=== PATIENT | male | born 1955 | race Asian ===

== ENCOUNTER 2018-11-01 15:38 | Inpatient (IN) | payer BC, OTHER ==
[~2018-11-01] VITALS: Ht 157.5 cm; Wt 61.0 kg
[2018-11-01] MEDS ORDERED: ONDANSETRON 4 MG INJ IV STA (17:10)
[2018-11-01] MEDS ORDERED: SOD CHLORIDE 0.9% 1,000 ML IV STA (17:10)
[2018-11-01] MEDS ORDERED: morphine 4 MG/ML VIAL IV STA (17:10)
--- NOTE | 2018-11-01 17:57 | ERD ---
ER Documentation Chief Complaint Chief Complaint ABD PAIN X 1 WEEK WITH DARK STOOL HPI This is a 63-year-old gentleman who presents to the emergency room complaining of abdominal pain. The patient has had approximately 5 days of abdominal pain that is generalized diffuse and 8 out of 10. No associated nausea vomiting diarrhea or constipation. There has been reported some possible bloody stools. The patient was in [place] and in the hospital for 3 days being treated for this pain and was told "your colon is twisted". No prior history of abdominal surgery. Patient arrived back to the [place] yesterday. ROS All systems reviewed and are negative except as per history of present illness. Medications Home Meds No Active Prescriptions or Reported Meds Allergies Allergies: Coded Allergies: No Known Drug Allergy (Verified Allergy, Unknown, 11/01/18) FmHx Family History: No diabetes Physical Exam Vitals Vital Signs Date Temp Pulse Resp B/P (MAP) Pulse Ox O2 O2 Flow FiO2 Time Delivery Rate 11/01/18 57 17 148/82 97 Room Air 19:30 (104) 11/01/18 98.4 78 16 158/87 98 Room Air 17:10 (110) 11/01/18 98.1 75 18 206/95 99 15:39 (132) Physical Exam General: Well developed, well nourished, no acute distress Head: Normocephalic, atraumatic. Eyes: Pupils equally reactive, EOM intact ENT: Moist mucous membranes Neck: Supple, no lymphadenopathy Respiratory: Lungs clear bilaterally, no distress Cardiovascular: RRR, no murmurs, rubs, or gallops Abdominal: Soft, mild generalized abdominal tenderness without rebound but voluntary guarding is noted, no localization : Deferred MSK: No edema, no unilateral swelling, 5/5 strength Neurologic: Alert and oriented, moving all extremities, normal speech, no focal weakness, no cerebellar signs Skin: No rash Psych: Normal mood Result Diagram: 11/01/18 1734 11/01/18 1734 Results 24 hrs Laboratory Tests Test 11/01/18 17:34 11/01/18 18:09 White Blood Count 7.1 10^3/ul Red Blood Count 4.02 10^6/ul Hemoglobin 13.3 g/dl Hematocrit 39.1 % Mean Corpuscular Volume 97.3 fl Mean Corpuscular Hemoglobin 33.1 pg Mean Corpuscular Hemoglobin Concent 34.0 g/dl Red Cell Distribution Width 12.1 % Platelet Count 284 10^3/UL Mean Platelet Volume 9.4 fl Immature Granulocytes % 0.700 % Neutrophils % 57.7 % Lymphocytes % 28.8 % Monocytes % 10.5 % Eosinophils % 1.6 % Basophils % 0.7 % Nucleated Red Blood Cells % 0.0 /100WBC Immature Granulocytes # 0.050 10^3/ul Neutrophils # 4.1 10^3/ul Lymphocytes # 2.0 10^3/ul Monocytes # 0.7 10^3/ul Eosinophils # 0.1 10^3/ul Basophils # 0.1 10^3/ul Nucleated Red Blood Cells # 0.0 10^3/ul Prothrombin Time 13.0 Sec Prothrombin Time Ratio 1.0 INR International Normalized Ratio 0.97 Activated Partial Thromboplast Time 33.2 Sec Sodium Level 141 mmol/L Potassium Level 3.8 mmol/L Chloride Level 107 mmol/L Carbon Dioxide Level 28 mmol/L Anion Gap 6 Blood Urea Nitrogen 13 mg/dl Creatinine 0.66 mg/dl Est Glomerular Filtrat Rate mL/min > 60 mL/min Glucose Level 93 mg/dl Calcium Level 8.6 mg/dl Total Bilirubin 0.0 mg/dl Direct Bilirubin 0.00 mg/dl Indirect Bilirubin 0.0 mg/dl Aspartate Amino Transf (AST/SGOT) 26 IU/L Alanine Aminotransferase (ALT/SGPT) 52 IU/L Alkaline Phosphatase 69 IU/L Total Protein 6.1 g/dl Albumin 3.2 g/dl Globulin 2.90 g/dl Albumin/Globulin Ratio 1.10 Lipase 228 U/L POC Venous Lactate 1.0 mmol/L Current Medications Medications Dose Sig/Maddy Start Time Status Last (Trade) Ordered Route PRN Stop Time Admin Dose Reason Admin Sodium 1,000 ml @ Q1H STAT 11/01/18 DC 11/01/18 Chloride 1,000 mls/hr IV 17:10 18:16 11/01/18 18:09 Morphine 4 mg ONCE STAT 11/01/18 DC 11/01/18 Sulfate IV 17:10 18:16 (morphine) 11/01/18 17:12 Ondansetron 4 mg ONCE STAT 11/01/18 DC 11/01/18 HCl (Zofran IV 17:10 18:16 Inj) 11/01/18 17:12 IV Flush 10 ml STK-MED 11/01/18 DC (NS 10 ml) ONCE .ROUTE 20:07 11/01/18 20:08 Sodium 100 ml @ ud STK-MED 11/01/18 DC Chloride ONCE .ROUTE 20:07 11/01/18 20:08 Iohexol 100 ml @ ud STK-MED 11/01/18 DC ONCE .ROUTE 20:07 11/01/18 20:08 Iohexol 50 ml STK-MED 11/01/18 DC (Omnipaque ONCE .ROUTE 20:07 350mg/ ml) 11/01/18 20:08 Procedures/MDM EKG, MONITORS, & DIAGNOSTIC IMAGING: CT abdomen and pelvis: IMPRESSION: 1. Multiple mildly dilated loops of small bowel with air-fluid levels and the small bowel feces sign without a transition point are nonspecific. The appearance may be due to malabsorption, dysmotility and/or mesenteric ischemia. Negative for pneumatosis. Recommend correlation with serum lactate and further evaluation with contrast enhanced CT preferably with arterial and venous phase imaging. 2. 2.1 cm liver lesion with coarse calcifications is unchanged from prior CT performed October 20, 2008 and likely benign. 3. Please note that in the absence of intravenous contrast the study does not evaluate the patency of the vasculature. RPTAT: HCTS CXR IMPRESSION: No evidence for acute cardiopulmonary disease. 7 mm ossific density versus sclerotic focus within the right humeral neck which is indeterminate. Aortic calcifications. Further findings as detailed above. RPTAT: HVF LAB INTERPRETATION: I reviewed the laboratory testing and it shows no evidence of acute process MEDICAL DECISION MAKING: The patient is 5 days of abdominal pain. He was traveling in [place] but this does not appear to be a foodborne or travel related illness. The patient describes similar symptoms approximately 10 years ago. The patient warrants laboratory testing and diagnostic imaging including CT of the abdomen and pelvis. Lower concern for mesenteric ischemia though [id number] lactate would be reasonable. Differential includes bowel obstruction, appendicitis, among others. ER COURSE: * The patient continues to have some discomfort. CT of the abdomen and pelvis shows nonspecific dilated bowel loops, consider ileus versus early bowel obstruction. Nonspecific. Lactic acid reassuring. CT of the abdomen and pelvis has been ordered. Given persistence of pain inpatient hospitalization for further workup would be appropriate. CONSULTATION: None DISPOSITION PLAN: Accepting care team and consultations: I discussed the current laboratory data, diagnostic imaging and emergency care provided. Admitting team: Dr. Aragon Admitting team indication: Insurance directed Departure Diagnosis: Primary Impression: Abdominal pain Abdominal location: generalized Qualified Codes: R10.84 - Generalized abdominal pain Condition: Stable ANGELO CRUZ MD Nov 01, 2018 17:57
[2018-11-01] MEDS ORDERED: IOHEXOL 350MG/ML 50 ML BTL ONE (20:07)
[2018-11-01] MEDS ORDERED: IOHEXOL 100 ML ONE (20:07)
[2018-11-01] MEDS ORDERED: SOD CHLORIDE 0.9% 100 ML ONE (20:07)
[2018-11-01] MEDS ORDERED: ONDANSETRON 4 MG INJ IV PRN (20:30)
[2018-11-01] MEDS ORDERED: ACETAMINOPHEN 325 MG TAB PO PRN (20:30)
[2018-11-01] MEDS ORDERED: DEXTROSE 5%-0.45% NACL 1,000 ML IV SCH (22:12)
[2018-11-01 22:24] VITALS: Ht 157.5 cm; Wt 61.0 kg
[2018-11-01 22:29] VITALS: BP 164/82; PULSE 53; RESP 16
[2018-11-01] MEDS ORDERED: morphine 2 MG INJ IV PRN (22:30)
[2018-11-01] MEDS ORDERED: NACL 0.9% 3 ML SYG IV SCH (22:30)
[2018-11-01] MEDS ORDERED: SOD CHLORIDE 0.9% 1,000 ML IV SCH (22:30)
[2018-11-01] MEDS: DEXTROSE 5%-0.45% NACL 1,000 ML IV SCH (23:30)
[2018-11-01] MEDS ORDERED: PANTOPRAZOLE IV 80 MG in SOD CHLORIDE 0.9% 100 ML IVPB ONE (23:30)
[2018-11-01] MEDS ORDERED: PANTOPRAZOLE IV 80 MG in SOD CHLORIDE 0.9% 100 ML IV SCH (23:30)
--- NOTE | 2018-11-01 23:34 | HP ---
Date/Time of Note Date/Time of Note DATE: 11/01/18 TIME: 23:34 Assessment/Plan VTE Prophylaxis Pharmacological prophylaxis: other Lines/Catheters IV [facility]from [facility] Saline Lock Assessment/Plan Hospital Course Objective Physical exam General: Patient is laying in bed and answers questions appropriately Mentation: Patient is alert and oriented 4, Head: Normocephalic atraumatic Eyes: EOMI, pupils reactive to light Neck: Supple, nontender, midline Respiratory: Clear to auscultation bilaterally Cardiovascular: regular rate, no obvious murmurs Gastrointestinal: Minimally tender to palpation, bowel sounds heard. Neurological: Moves all extremities spontaneously Skin: No new skin lesions Assessment and plan Small bowel obstruction -Diagnosed on CT angiogram -Dr. Buenrostro, general surgeon consulted, recommended small bowel follow-through in the morning -Appears that distention and pain has been resolving Urinary retention -Patient had large amount of urine retained, was not able to pee, Navarrete catheter inserted -Day team to reassess and possibly trial of removal Questionable bloody stool in [facility] -No bloody stool at the moment, there was some talk of possible colon cancer in [place], however are CTs do not show any particular mass, however that day team primary doctor will need to talk to the on-site radiologist to reevaluate imaging to see if there is a possibility of mass or if further imaging is needed before patient can follow-up in the outpatient setting with GI. Disposition -N.p.o., IV fluid, follow-up with general surgery recommendations, small bowel follow-through pending for the morning Result Diagram: 11/01/18 1734 11/01/18 1734 Results 24hrs Laboratory Tests Test 11/01/18 17:34 11/01/18 18:09 White Blood Count 7.1 Red Blood Count 4.02 L Hemoglobin 13.3 L Hematocrit 39.1 L Mean Corpuscular Volume 97.3 Mean Corpuscular Hemoglobin 33.1 H Mean Corpuscular Hemoglobin Concent 34.0 Red Cell Distribution Width 12.1 Platelet Count 284 Mean Platelet Volume 9.4 Immature Granulocytes % 0.700 H Neutrophils % 57.7 Lymphocytes % 28.8 Monocytes % 10.5 Eosinophils % 1.6 Basophils % 0.7 Nucleated Red Blood Cells % 0.0 Immature Granulocytes # 0.050 H Neutrophils # 4.1 Lymphocytes # 2.0 Monocytes # 0.7 Eosinophils # 0.1 Basophils # 0.1 Nucleated Red Blood Cells # 0.0 Prothrombin Time 13.0 Prothrombin Time Ratio 1.0 INR International Normalized Ratio 0.97 Activated Partial Thromboplast Time 33.2 Sodium Level 141 Potassium Level 3.8 Chloride Level 107 Carbon Dioxide Level 28 Anion Gap 6 Blood Urea Nitrogen 13 Creatinine 0.66 Est Glomerular Filtrat Rate mL/min > 60 Glucose Level 93 Calcium Level 8.6 Total Bilirubin 0.0 L Direct Bilirubin 0.00 Indirect Bilirubin 0.0 Aspartate Amino Transf (AST/SGOT) 26 Alanine Aminotransferase (ALT/SGPT) 52 Alkaline Phosphatase 69 Total Protein 6.1 Albumin 3.2 L Globulin 2.90 Albumin/Globulin Ratio 1.10 Lipase 228 POC Venous Lactate 1.0 HPI/ROS Admit Date/Time Admit Date/Time Nov 01, 2018 at 20:23 Hx of Present Illness Patient is a Armenian male with no significant past medical history who presents to [facility] for abdominal pain. Patient states that the pain is been going on for about a week and it eventually became so bad he decided to come to the ED. Patient states that the pain was generally diffuse but has not had any nausea, vomiting, diarrhea. Patient currently mikhail ears much more comfortable, however may be due to pain medication. Of note patient stated that he was recently in [place] and it appears that he was being treated for a small bowel obstruction as well, they treated conservatively and did not perform surgery. Also of note patient had dark stool while in [place], the surgeons over there mention something regarding possible colon cancer however patient decided [facility] to get further workup. Currently patient is doing well with minimal abdominal pain. Patient denies nausea, vomiting, chest pain, shortness of breath, headache, leg pain PMH/Family/Social Past Medical History Medications Current Medications Ondansetron HCl (Zofran Inj) 4 mg BRIDGE ORDER PRN IV NAUSEA/VOMITING; Start 11/01/18 at 20:30; Stop 11/02/18 at 20:29 Acetaminophen (Tylenol Tab) 650 mg ER BRIDGE PRN PO .MILD PAIN 1-3 OR TEMP; Start 11/01/18 at 20:30; Stop 11/02/18 at 20:29 IV Flush (NS 3 ml) 3 ml PER PROTOCOL IV ; Start 11/01/18 at 22:30 Morphine Sulfate (morphine) 2 mg Q4H PRN IV .PAIN 7-10; Start 11/01/18 at 22:30 Pantoprazole (Protonix Iv) 40 mg DAILY@06 IV ; Start 11/02/18 at 06:00 Sodium Chloride 1,000 ml @ 100 mls/hr Q10H IV Last administered on 11/01/18at 22:57; Admin Dose 100 MLS/HR; Start 11/01/18 at 22:30 Coded Allergies: No Known Drug Allergy (Verified Allergy, Unknown, 11/01/18) Social History Smoking Status: Current every day smoker Exam/Review of Systems Vital Signs Vitals Vital Signs Date Temp Pulse Resp B/P (MAP) Pulse Ox O2 O2 Flow FiO2 Time Delivery Rate 11/01/18 98.1 53 16 164/82 96 22:29 (109) 11/01/18 Room Air 21:40 BERNY BUSTILLOS Nov 01, 2018 23:34
[2018-11-02 02:20] VITALS: BP 153/76; PULSE 46; RESP 15
[2018-11-02] MEDS: PANTOPRAZOLE 40 MG INJ IV SCH (05:25)
[2018-11-02] MEDS ORDERED: PANTOPRAZOLE 40 MG INJ IV SCH (06:00)
[2018-11-02] MEDS: DEXTROSE 5%-0.45% NACL 1,000 ML IV SCH (06:11)
[2018-11-02 07:33] VITALS: BP 149/79; PULSE 51; RESP 14
--- NOTE | 2018-11-02 10:36 | CONS ---
Assessment/Plan Assessment/Plan Assessment/Plan (Daily) At the CT yesterday suggested small bowel obstruction. A small bowel follow- through has been ordered. Further recommendations will be forthcoming based on the patient's further workup and clinical course. I will follow with you. Consultation Date/Type/Reason Admit Date/Time Nov 01, 2018 at 20:23 Date of Consultation: Nov 02, 2018 Type of Consult General surgery Reason for Consultation Possible small bowel obstruction Date/Time of Note DATE: 11/02/18 TIME: 10:32 Hx of Present Illness The patient is a 63-year-old Irish gentleman who has had no previous abdominal surgery. Several weeks ago he was in [place] where he was being worked up for abdominal pain. It is entirely unclear the what the results of this workup were or what the recommendations were. He presented to the emergency room yesterday with mid abdominal pain. Imaging in the emergency room suggested small bowel obstruction. The patient was admitted, surgical consultation was requested, and small bowel follow-through has been ordered. His last bowel movement was yesterday. The patient states that since admission he is symptomatically improved. He has had no fevers, chills or systemic symptoms. Constitutional: no complaints Eyes: no complaints ENT: no complaints Respiratory: no complaints Cardiovascular: no complaints Gastrointestinal: pain (As in the HPI) Genitourinary: no complaints Musculoskeletal: no complaints Skin: no complaints Neurologic: no complaints Endocrine: no complaints Lymphatic: no complaints Past Medical History Medical History: hypertension Home Meds No Active Prescriptions or Reported Meds Medications Current Medications IV Flush (NS 3 ml) 3 ml PER PROTOCOL IV ; Start 11/01/18 at 22:30 Morphine Sulfate (morphine) 2 mg Q4H PRN IV .PAIN 7-10; Start 11/01/18 at 22:30 Pantoprazole (Protonix Iv) 40 mg DAILY@06 IV Last administered on 11/02/18at 05:25; Admin Dose 40 MG; Start 11/02/18 at 06:00 Potassium Chloride/Dextrose/ Sod Cl 1,000 ml @ 100 mls/hr Q10H IV ; Start 11/02/18 at 09:30 Allergies: Coded Allergies: No Known Drug Allergy (Verified Allergy, Unknown, 11/01/18) Past Surgical History Past Surgical Hx: no surgical history Family History Significant Family History: no pertinent family hx Social History Smoking Status: Current every day smoker Exam/Review of Systems Exam Vitals Vital Signs Date Temp Pulse Resp B/P (MAP) Pulse Ox O2 O2 Flow FiO2 Time Delivery Rate 11/02/18 98.6 51 14 149/79 100 Room Air 07:33 (102) Intake and Output 11/01/18 11/01/18 11/02/18 1515:00 23:00 07:00 IntakeIntake Total 1000 ml OutputOutput Total 1300 ml BalanceBalance -300 ml Constitutional: alert, oriented Psych: no complaints Head: normocephalic Eyes: nl conjunctiva ENMT: nl external ears & nose Neck: supple Respiratory: clear to auscultation Cardiovascular: regular rate and rhythm Gastrointestinal: soft, non-tender Musculoskeletal: nl extremities to inspection Extremities: normal pulses Neurological: other (Speaks only Irish) Skin: nl turgor Results Result Diagram: 11/02/18 0436 11/02/18 0436 Results 24hrs Laboratory Tests Test 11/01/18 17:34 11/01/18 18:09 11/01/18 22:36 11/02/18 04:36 White Blood Count 7.1 7.3 Red Blood Count 4.02 L 4.13 L Hemoglobin 13.3 L 13.7 L Hematocrit 39.1 L 40.3 L Mean Corpuscular 97.3 97.6 Volume Mean Corpuscular 33.1 H 33.2 H Hemoglobin Mean Corpuscular 34.0 34.0 Hemoglobin Concent Red Cell 12.1 12.2 Distribution Width Platelet Count 284 284 Mean Platelet Volume 9.4 9.8 Immature 0.700 H 0.400 Granulocytes % Neutrophils % 57.7 50.2 Lymphocytes % 28.8 36.6 Monocytes % 10.5 9.7 Eosinophils % 1.6 2.3 Basophils % 0.7 0.8 Nucleated Red Blood 0.0 0.0 Cells % Immature 0.050 H 0.030 Granulocytes # Neutrophils # 4.1 3.7 Lymphocytes # 2.0 2.7 Monocytes # 0.7 0.7 Eosinophils # 0.1 0.2 Basophils # 0.1 0.1 Nucleated Red Blood 0.0 0.0 Cells # Prothrombin Time 13.0 Prothrombin Time 1.0 Ratio INR International 0.97 Normalized Ratio Activated 33.2 Partial Thromboplast Time Sodium Level 141 142 Potassium Level 3.8 3.3 L Chloride Level 107 110 Carbon Dioxide Level 28 28 Anion Gap 6 4 L Blood Urea Nitrogen 13 8 Creatinine 0.66 0.58 L Est Glomerular > 60 > 60 Filtrat Rate mL/min Glucose Level 93 81 Calcium Level 8.6 8.3 L Total Bilirubin 0.0 L 0.0 L Direct Bilirubin 0.00 0.00 Indirect Bilirubin 0.0 0.0 Aspartate Amino 26 33 Transf (AST/SGOT) Alanine 52 55 Aminotransferase (AL T/SGPT) Alkaline Phosphatase 69 52 Total Protein 6.1 5.3 L Albumin 3.2 L 2.7 L Globulin 2.90 2.60 Albumin/Globulin 1.10 1.03 Ratio Lipase 228 POC Venous Lactate 1.0 Lactic Acid Level 1.1 Hemoglobin A1c 5.2 Magnesium Level 1.7 Medications Medication Current Medications IV Flush (NS 3 ml) 3 ml PER PROTOCOL IV ; Start 11/01/18 at 22:30 Morphine Sulfate (morphine) 2 mg Q4H PRN IV .PAIN 7-10; Start 11/01/18 at 22:30 Pantoprazole (Protonix Iv) 40 mg DAILY@06 IV Last administered on 11/02/18at 05:25; Admin Dose 40 MG; Start 11/02/18 at 06:00 Potassium Chloride/Dextrose/ Sod Cl 1,000 ml @ 100 mls/hr Q10H IV ; Start 11/02/18 at 09:30 ELZBIETA RHODES MD Nov 02, 2018 10:36
[2018-11-02] MEDS ORDERED: DIATR MEGLU/DIATRIZOATE SODIUM 120 ML BTL ONE (10:43)
--- NOTE | 2018-11-02 10:43 | PN ---
Date/Time of Note Date/Time of Note DATE: 11/02/18 TIME: 10:41 Assessment/Plan VTE Prophylaxis Risk score (from Ns)>0 risk: 0 [place] [facility] [place] Pharmacological prophylaxis: NA/contraindicated Pharm contraindication: surgical contra Lines/Catheters IV [facility] Peripheral IV Assessment/Plan Hospital Course Small bowel obstruction -Diagnosed on CT angiogram -Dr. Beunrostro, general surgeon consulted, recommended small bowel follow-through -Appears that distention and pain has been resolving -Patient does have history of small bowel obstruction back in [place], at that time NG tube was placed with resolution -Patient has no history of malignancy and no history of abdominal surgery Urinary retention -Patient had large amount of urine retained, was not able to urinate,, Navarrete catheter inserted -Voiding trial tomorrow Prophylaxis: SCD Result Diagram: 11/02/18 0436 11/02/18 0436 Results 24hrs Laboratory Tests Test 11/01/18 17:34 11/01/18 18:09 11/01/18 22:36 11/02/18 04:36 White Blood Count 7.1 7.3 Red Blood Count 4.02 L 4.13 L Hemoglobin 13.3 L 13.7 L Hematocrit 39.1 L 40.3 L Mean Corpuscular 97.3 97.6 Volume Mean Corpuscular 33.1 H 33.2 H Hemoglobin Mean Corpuscular 34.0 34.0 Hemoglobin Concent Red Cell 12.1 12.2 Distribution Width Platelet Count 284 284 Mean Platelet Volume 9.4 9.8 Immature 0.700 H 0.400 Granulocytes % Neutrophils % 57.7 50.2 Lymphocytes % 28.8 36.6 Monocytes % 10.5 9.7 Eosinophils % 1.6 2.3 Basophils % 0.7 0.8 Nucleated Red Blood 0.0 0.0 Cells % Immature 0.050 H 0.030 Granulocytes # Neutrophils # 4.1 3.7 Lymphocytes # 2.0 2.7 Monocytes # 0.7 0.7 Eosinophils # 0.1 0.2 Basophils # 0.1 0.1 Nucleated Red Blood 0.0 0.0 Cells # Prothrombin Time 13.0 Prothrombin Time 1.0 Ratio INR International 0.97 Normalized Ratio Activated 33.2 Partial Thromboplast Time Sodium Level 141 142 Potassium Level 3.8 3.3 L Chloride Level 107 110 Carbon Dioxide Level 28 28 Anion Gap 6 4 L Blood Urea Nitrogen 13 8 Creatinine 0.66 0.58 L Est Glomerular > 60 > 60 Filtrat Rate mL/min Glucose Level 93 81 Calcium Level 8.6 8.3 L Total Bilirubin 0.0 L 0.0 L Direct Bilirubin 0.00 0.00 Indirect Bilirubin 0.0 0.0 Aspartate Amino 26 33 Transf (AST/SGOT) Alanine 52 55 Aminotransferase (AL T/SGPT) Alkaline Phosphatase 69 52 Total Protein 6.1 5.3 L Albumin 3.2 L 2.7 L Globulin 2.90 2.60 Albumin/Globulin 1.10 1.03 Ratio Lipase 228 POC Venous Lactate 1.0 Lactic Acid Level 1.1 Hemoglobin A1c 5.2 Magnesium Level 1.7 Subjective 24 Hr Interval Summary Constitutional: no complaints Exam/Review of Systems Exam Vitals Vital Signs Date Temp Pulse Resp B/P (MAP) Pulse Ox O2 O2 Flow FiO2 Time Delivery Rate 11/02/18 98.6 51 14 149/79 100 Room Air 07:33 (102) Intake and Output 11/01/18 11/01/18 11/02/18 1515:00 23:00 07:00 IntakeIntake Total 1000 ml OutputOutput Total 1300 ml BalanceBalance -300 ml Constitutional: alert, oriented Respiratory: clear to auscultation Cardiovascular: regular rate and rhythm Gastrointestinal: soft; No distended Musculoskeletal: nl extremities to inspection Results Results 24hrs Laboratory Tests Test 11/01/18 17:34 11/01/18 18:09 11/01/18 22:36 11/02/18 04:36 White Blood Count 7.1 7.3 Red Blood Count 4.02 L 4.13 L Hemoglobin 13.3 L 13.7 L Hematocrit 39.1 L 40.3 L Mean Corpuscular 97.3 97.6 Volume Mean Corpuscular 33.1 H 33.2 H Hemoglobin Mean Corpuscular 34.0 34.0 Hemoglobin Concent Red Cell 12.1 12.2 Distribution Width Platelet Count 284 284 Mean Platelet Volume 9.4 9.8 Immature 0.700 H 0.400 Granulocytes % Neutrophils % 57.7 50.2 Lymphocytes % 28.8 36.6 Monocytes % 10.5 9.7 Eosinophils % 1.6 2.3 Basophils % 0.7 0.8 Nucleated Red Blood 0.0 0.0 Cells % Immature 0.050 H 0.030 Granulocytes # Neutrophils # 4.1 3.7 Lymphocytes # 2.0 2.7 Monocytes # 0.7 0.7 Eosinophils # 0.1 0.2 Basophils # 0.1 0.1 Nucleated Red Blood 0.0 0.0 Cells # Prothrombin Time 13.0 Prothrombin Time 1.0 Ratio INR International 0.97 Normalized Ratio Activated 33.2 Partial Thromboplast Time Sodium Level 141 142 Potassium Level 3.8 3.3 L Chloride Level 107 110 Carbon Dioxide Level 28 28 Anion Gap 6 4 L Blood Urea Nitrogen 13 8 Creatinine 0.66 0.58 L Est Glomerular > 60 > 60 Filtrat Rate mL/min Glucose Level 93 81 Calcium Level 8.6 8.3 L Total Bilirubin 0.0 L 0.0 L Direct Bilirubin 0.00 0.00 Indirect Bilirubin 0.0 0.0 Aspartate Amino 26 33 Transf (AST/SGOT) Alanine 52 55 Aminotransferase (AL T/SGPT) Alkaline Phosphatase 69 52 Total Protein 6.1 5.3 L Albumin 3.2 L 2.7 L Globulin 2.90 2.60 Albumin/Globulin 1.10 1.03 Ratio Lipase 228 POC Venous Lactate 1.0 Lactic Acid Level 1.1 Hemoglobin A1c 5.2 Magnesium Level 1.7 Medications Medication Current Medications IV Flush (NS 3 ml) 3 ml PER PROTOCOL IV ; Start 11/01/18 at 22:30 Morphine Sulfate (morphine) 2 mg Q4H PRN IV .PAIN 7-10; Start 11/01/18 at 22:30 Pantoprazole (Protonix Iv) 40 mg DAILY@06 IV Last administered on 11/02/18at 05:25; Admin Dose 40 MG; Start 11/02/18 at 06:00 Potassium Chloride/Dextrose/ Sod Cl 1,000 ml @ 100 mls/hr Q10H IV ; Start 11/02/18 at 09:30 THA GILBERT Nov 02, 2018 10:43
[2018-11-02] MEDS ORDERED: MAGNESIUM SULFATE 2 GM/50 ML 50 ML IVPB ONE (11:30)
[2018-11-02] MEDS: D5W-0.45 NACL + KCL 40 MEQ 1,000 ML IV SCH ×2 (12:35→19:30)
[2018-11-02 14:34] VITALS: BP 140/74; PULSE 49; RESP 14
[2018-11-02 19:10] VITALS: BP 165/79; PULSE 52; RESP 18
[2018-11-03] MEDS: D5W-0.45 NACL + KCL 40 MEQ 1,000 ML IV SCH (01:18)
[2018-11-03 02:55] VITALS: BP 163/78; PULSE 20; RESP 20
[2018-11-03] MEDS: PANTOPRAZOLE 40 MG INJ IV SCH (05:20)
[2018-11-03 07:16] VITALS: BP 150/81; PULSE 66; RESP 15
--- NOTE | 2018-11-03 11:17 | QN ---
Documentation Comment SBFT is normal Abdominal examination is benign No abdominal pain Plan: As there are no surgical recommendations, will sign off and see prn. Should be able to discharge today ELZBIETA RHODES MD Nov 03, 2018 11:17
--- NOTE | 2018-11-03 11:34 | PDOCDIS ---
Discharge Instructions CONDITION [id number] Patient Condition: [id number] Good HOME CARE INSTRUCTIONS: [id number] Diet Instructions: [id number] Regular ACTIVITY: [id number] Activity Restrictions: [id number] No Restrictions FOLLOW UP/APPOINTMENTS Follow-up Plan FOLLOW UP WITH YOUR PCP IN 1-2 WEEKS THA GILBERT Nov 03, 2018 11:34
[2018-11-03 14:30] VITALS: BP 140/73; PULSE 71; RESP 15
--- NOTE | 2018-11-03 16:27 | DS ---
Date/Time of Note Date/Time of Note DATE: 11/03/18 TIME: 16:22 Discharge Summary Admission/Discharge Info Admit Date/Time Nov 01, 2018 at 20:23 Discharge Date/Time Nov 03, 2018 at 15:11 Discharge Diagnosis Small bowel obstruction-resolved -Diagnosed on CT angiogram -Dr. Buenrostro, general surgeon consulted, recommended small bowel follow-through which was negative -Patient now having bowel movements and tolerating p.o. diet -Patient does have history of small bowel obstruction back in [place], at that time NG tube was placed with resolution -Patient has no history of malignancy and no history of abdominal surgery Urinary retention-result -Patient had large amount of urine retained, was not able to urinate,, Navarrete catheter inserted -Voiding trial today, patient was able to urinate Patient Condition: Good Hospital Course Patient is a 63-year-old male with a history of SBO back in [place] which resolved with conservative care. Patient presents once again with abdominal pain and was found to have an SBO, patient has no history of abdominal surgery or malignancy. Patient had a CT angiogram of the abdomen which was negative, surgery consultation was obtained recommendation was for small bowel follow- through which was negative. Patient did have bowel movements and did tolerate a p.o. diet. Of note patient did recently lose his mother and was why he was in [place] and patient's presentation may be related to dysmotility due to psychological stress. Patient was stable for DC, the day of discharge patient's vitals, labs and physical exam are stable. Home Meds No Active Prescriptions or Reported Meds Follow-up Plan FOLLOW UP WITH YOUR PCP IN 1-2 WEEKS Primary Care Provider Not On Staff Doctor Time spent on discharge: > 30 minutes THA GILBERT Nov 03, 2018 16:27
== END 2018-11-03 15:11 | disposition home or self-care (01) | DRG 390 ==
LOC: E/R 15:38 → MS1 20:23
PROVIDERS: ADMIT Internal Medicine; ATTEND Internal Medicine
DX: K56.609 Unspecified intestinal obstruction, unspecified as to partial versus complete obstruction (principal); R33.9 Retention of urine, unspecified; F17.210 Nicotine dependence, cigarettes, uncomplicated
CPT/HCPCS: 36415; 71045; 74176; 74250; 75635; 80048; 80053; 83036; 83605; 83690; 83735; 84100; 85025; 85610; 85730; 96374; 96375; C9113; J2270; J2405; J3475; J3480; J7030; J7042; Q9967

== ENCOUNTER 2019-02-23 07:50 | Inpatient (IN) | payer OTHER ==
[~2019-02-23] VITALS: Ht 165.1 cm; Wt 61.0 kg
[2019-02-23] MEDS ORDERED: morphine 4 MG/ML VIAL IV STA (08:20)
[2019-02-23] MEDS ORDERED: ONDANSETRON 4 MG INJ IV STA (08:20)
--- NOTE | 2019-02-23 08:22 | ERD ---
ER Documentation Chief Complaint Chief Complaint MID ABD PAIN STARTED APPROX 1 HOUR AGO. HPI This is a 63-year-old male who presents for evaluation of mid abdominal pain is been going on since yesterday. He has similar episode 3 months ago, patient endorses tobacco use, alcohol use, pain is mainly located to the epigastric area. He denies any chest pain or shortness of breath, he has no history of GI surgeries. He did not see a doctor when this episode happened last time. Symptoms are intermittent, described as burning ROS All systems reviewed and are negative except as per history of present illness. Medications Home Meds No Active Prescriptions or Reported Meds Allergies Allergies: Coded Allergies: No Known Drug Allergy (Verified Allergy, Unknown, 02/23/19) PMhx/Soc History of Surgery: No Hx Neurological Disorder: No Hx Respiratory Disorders: No Hx Cardiac Disorders: Yes (HTN) Hx Psychiatric Problems: No Hx Miscellaneous Medical Probl: No Hx Alcohol Use: No Hx Substance Use: No Hx Tobacco Use: Yes Physical Exam Vitals Vital Signs Date Temp Pulse Resp B/P (MAP) Pulse Ox O2 O2 Flow FiO2 Time Delivery Rate 02/23/19 96.5 55 16 141/78 99 Room Air 09:53 (99) 02/23/19 96.5 68 16 125/76 99 07:57 (92) Physical Exam Const: No acute distress Head: Atraumatic Eyes: Normal Conjunctiva ENT: Normal External Ears, Nose and Mouth. Neck: Full range of motion. No meningismus. Resp: Clear to auscultation bilaterally Cardio: Regular rate and rhythm, no murmurs Abd: Soft, non tender, there is tenderness to the gastric area. Normal bowel sounds Skin: No petechiae or rashes Back: No midline or flank tenderness Ext: No cyanosis, or edema Neur: Awake and alert Psych: Normal Mood and Affect Result Diagram: 02/23/19 0815 02/23/19 0815 Results 24 hrs Laboratory Tests Test 02/23/19 08:15 White Blood Count 12.0 10^3/ul Red Blood Count 4.74 10^6/ul Hemoglobin 15.3 g/dl Hematocrit 45.1 % Mean Corpuscular Volume 95.1 fl Mean Corpuscular Hemoglobin 32.3 pg Mean Corpuscular Hemoglobin Concent 33.9 g/dl Red Cell Distribution Width 12.6 % Platelet Count 246 10^3/UL Mean Platelet Volume 9.4 fl Immature Granulocytes % 0.600 % Neutrophils % 80.4 % Lymphocytes % 12.3 % Monocytes % 5.8 % Eosinophils % 0.5 % Basophils % 0.4 % Nucleated Red Blood Cells % 0.0 /100WBC Immature Granulocytes # 0.070 10^3/ul Neutrophils # 9.6 10^3/ul Lymphocytes # 1.5 10^3/ul Monocytes # 0.7 10^3/ul Eosinophils # 0.1 10^3/ul Basophils # 0.1 10^3/ul Nucleated Red Blood Cells # 0.0 10^3/ul Prothrombin Time 11.8 Sec Prothrombin Time Ratio 0.9 INR International Normalized Ratio 0.86 Sodium Level 140 mmol/L Potassium Level 3.9 mmol/L Chloride Level 105 mmol/L Carbon Dioxide Level 27 mmol/L Anion Gap 8 Blood Urea Nitrogen 13 mg/dl Creatinine 0.62 mg/dl Est Glomerular Filtrat Rate mL/min > 60 mL/min Glucose Level 139 mg/dl Calcium Level 9.9 mg/dl Total Bilirubin 0.5 mg/dl Direct Bilirubin 0.00 mg/dl Indirect Bilirubin 0.5 mg/dl Aspartate Amino Transf (AST/SGOT) 26 IU/L Alanine Aminotransferase (ALT/SGPT) 27 IU/L Alkaline Phosphatase 58 IU/L Troponin I < 0.012 ng/ml Total Protein 7.6 g/dl Albumin 4.2 g/dl Globulin 3.40 g/dl Albumin/Globulin Ratio 1.23 Lipase 35 U/L Current Medications Medications Dose Sig/Maddy Start Time Status Last (Trade) Ordered Route PRN Stop Time Admin Dose Reason Admin Morphine 4 mg ONCE STAT 02/23/19 DC 02/23/19 Sulfate IV 08:20 02/23/19 08:25 (morphine) 08:23 Ondansetron 4 mg ONCE STAT 02/23/19 DC 02/23/19 HCl (Zofran IV 08:20 02/23/19 08:25 Inj) 08:23 40 ml ONCE ONCE 02/23/19 DC 02/23/19 Miscellaneous PO 09:00 02/23/19 09:10 Medication 09:01 (Gi Cocktail (2)) Famotidine 20 mg ONCE ONCE 02/23/19 DC 02/23/19 (Pepcid) PO 09:00 6/9/19 09:10 09:01 Lorazepam 0.5 mg ONCE ONCE 02/23/19 DC 02/23/19 (Ativan) IV 10:00 02/23/19 10:16 10:01 Ondansetron 4 mg BRIDGE ORDER 02/23/19 HCl (Zofran PRN IV 10:00 Inj) NAUSEA/VOMITI 02/24/19 09:59 NG 650 mg ER BRIDGE 02/23/19 Acetaminophen PRN PO 10:00 (Tylenol .MILD PAIN 02/24/19 09:59 Tab) 1-3 OR TEMP Procedures/MDM This is a 63-year-old male who presents for evaluation of abdominal pain. On exam patient had no peritoneal signs, he had no fever no infectious signs or symptoms, his CT abdomen pelvis was notable for a small bowel obstruction with transition point at the anterior pelvis. NG tube placed by RN, patient will be admitted to [facility] for further work-up. Accepting Care Team: Current data and ongoing care discussed. Primary: Mahesh Consulting: Arcenio Outstanding Data: none Departure Diagnosis: Primary Impression: Abdominal pain Abdominal location: unspecified location Qualified Codes: R10.9 - Unspecified abdominal pain Additional Impression: Small bowel obstruction Condition: Stable BERNY JOY MD Feb 23, 2019 08:22
[2019-02-23] MEDS ORDERED: LIDOCAINE/MYLANTA 40 ML BTL PO ONE (09:00)
[2019-02-23] MEDS ORDERED: FAMOTIDINE 20 MG TAB PO ONE (09:00)
[2019-02-23] MEDS ORDERED: ONDANSETRON 4 MG INJ IV PRN ×2 (10:00→11:30)
[2019-02-23] MEDS ORDERED: LORAZEPAM 2 MG INJ IV ONE (10:00)
[2019-02-23] MEDS ORDERED: ACETAMINOPHEN 325 MG TAB PO PRN ×2 (10:00→11:30)
[2019-02-23 11:02] VITALS: BP 139/80; PULSE 61; RESP 18; Ht 165.1 cm; Wt 61.0 kg
[2019-02-23] MEDS ORDERED: NACL 0.9% 3 ML SYG IV SCH (11:30)
[2019-02-23] MEDS: morphine 2 MG INJ IV PRN ×3 (11:39→23:40)
[2019-02-23] MEDS: D5W-0.45 NACL + KCL 20 MEQ 1,000 ML IV SCH ×2 (11:39→23:41)
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
[2019-02-23 14:54] VITALS: BP 122/69; PULSE 53; RESP 18
--- NOTE | 2019-02-23 17:25 | CONS ---
Assessment/Plan Assessment/Plan Problems: (1) Abdominal pain Status: Acute Qualifiers: Qualified Codes: R10.9 - Unspecified abdominal pain (2) Small bowel obstruction Status: Acute Assessment/Plan (Daily) Patient with recurrent episodes of small bowel obstruction. Conservative treatment started. If the patient continues to have pain and being obstructed to tomorrow we will consider exploratory laparoscopy Consultation Date/Type/Reason Admit Date/Time Feb 23, 2019 at 09:48 Date of Consultation: Feb 23, 2019 Type of Consult Surgical Reason for Consultation Small bowel obstruction Date/Time of Note DATE: 02/23/19 TIME: 17:21 Hx of Present Illness Patient is 63-year-old male with the fourth episode of small bowel obstruction without history of the previous surgery. All previous episodes resolved spontan eously. The first one was noted in 2008, then he had one last year one in October this year which was well recorded in the chart. Small bowel follow- through was performed during his last admission in October 2018 that was reportedly normal. All episodes of bowel obstruction resolved spontaneously without additional intervention. This episode started about 2 days ago with abdominal pain in the mid abdomen associated with nausea and vomiting. Last bowel movement was this morning. Patient does not pass gas since then. Urgency room the CT scan was performed that show small bowel obstruction with transition point in the mid jejunum. NG tube was placed. White count was 12,000. Constitutional: no complaints, improved Eyes: no complaints ENT: no complaints Respiratory: no complaints Cardiovascular: no complaints Gastrointestinal: pain, constipation, nausea, vomiting Genitourinary: no complaints Musculoskeletal: no complaints Skin: no complaints Neurologic: no complaints Endocrine: no complaints Lymphatic: no complaints Psychological: no complaints, nl mood/affect Immunologic: no complaints Past Medical History Medical History: hypertension Home Meds No Active Prescriptions or Reported Meds Medications Current Medications Potassium Chloride/Dextrose/ Sod Cl 1,000 ml @ 80 mls/hr [id number] IV Last administered on 02/23/19at 11:39; Admin Dose 80 MLS/HR; Start 02/23/19 at 11:21 IV Flush (NS 3 ml) 3 ml PER PROTOCOL IV ; Start 02/23/19 at 11:30 Ondansetron HCl (Zofran Inj) 4 mg Q6H PRN IV NAUSEA/VOMITING; Start 02/23/19 at 11:30 Acetaminophen (Tylenol Tab) 650 mg Q6H PRN PO .PAIN 1-3 OR TEMP; Start 02/23/19 at 11:30 Morphine Sulfate (morphine) 2 mg Q4H PRN IV .SEVERE PAIN 7-10 Last administered on 02/23/19at 11:39; Admin Dose 2 MG; Start 02/23/19 at 11:30 Heparin Sodium (Porcine) (Heparin (5000 Units/1ml)) 5,000 unit Q12 SC ; Start 02/23/19 at 21:00 Pantoprazole (Protonix Iv) 40 mg BID@06,18 IV ; Start 02/23/19 at 18:00 Allergies: Coded Allergies: No Known Drug Allergy (Verified Allergy, Unknown, 02/23/19) Past Surgical History Past Surgical Hx: no surgical history Social History Alcohol Use: heavy Smoking Status: Current every day smoker Drug Use: none Exam/Review of Systems Exam Vitals Vital Signs Date Temp Pulse Resp B/P (MAP) Pulse Ox O2 O2 Flow FiO2 Time Delivery Rate 02/23/19 98.3 53 18 122/69 96 Room Air 14:54 (86) Constitutional: alert, oriented, well developed Psych: no complaints, nl mood/affect Head: normocephalic, atraumatic Eyes: nl conjunctiva, EOMI, nl lids, nl sclera, PERRL ENMT: nl external ears & nose, nl lips & teeth, nl nasal mucosa & septum Neck: supple, non-tender Respiratory: clear to auscultation, normal air movement Cardiovascular: regular rate and rhythm, nl pulses Gastrointestinal: soft, nl liver, spleen, non-tender, distended (Mildly.) Musculoskeletal: nl extremities to inspection, nl gait and stance Extremities: normal pulses Neurological: WINDOWS SYSTEMS ENGINEER II-XII intact, nl mental status, nl speech, nl strength Skin: nl turgor; No rash or lesions Lymph: nl lymph nodes Results Result Diagram: 02/23/19 0815 02/23/19 0815 Results 24hrs Laboratory Tests Test 02/23/19 08:15 White Blood Count 12.0 H Red Blood Count 4.74 Hemoglobin 15.3 Hematocrit 45.1 Mean Corpuscular Volume 95.1 Mean Corpuscular Hemoglobin 32.3 Mean Corpuscular Hemoglobin Concent 33.9 Red Cell Distribution Width 12.6 Platelet Count 246 Mean Platelet Volume 9.4 Immature Granulocytes % 0.600 H Neutrophils % 80.4 H Lymphocytes % 12.3 L Monocytes % 5.8 Eosinophils % 0.5 Basophils % 0.4 Nucleated Red Blood Cells % 0.0 Immature Granulocytes # 0.070 H Neutrophils # 9.6 H Lymphocytes # 1.5 Monocytes # 0.7 Eosinophils # 0.1 Basophils # 0.1 Nucleated Red Blood Cells # 0.0 Prothrombin Time 11.8 L Prothrombin Time Ratio 0.9 INR International Normalized Ratio 0.86 Sodium Level 140 Potassium Level 3.9 Chloride Level 105 Carbon Dioxide Level 27 Anion Gap 8 Blood Urea Nitrogen 13 Creatinine 0.62 Est Glomerular Filtrat Rate mL/min > 60 Glucose Level 139 Calcium Level 9.9 Total Bilirubin 0.5 Direct Bilirubin 0.00 Indirect Bilirubin 0.5 Aspartate Amino Transf (AST/SGOT) 26 Alanine Aminotransferase (ALT/SGPT) 27 Alkaline Phosphatase 58 Troponin I < 0.012 Total Protein 7.6 Albumin 4.2 Globulin 3.40 H Albumin/Globulin Ratio 1.23 Lipase 35 Medications Medication Current Medications Potassium Chloride/Dextrose/ Sod Cl 1,000 ml @ 80 mls/hr [id number] IV Last administered on 02/23/19at 11:39; Admin Dose 80 MLS/HR; Start 02/23/19 at 11:21 IV Flush (NS 3 ml) 3 ml PER PROTOCOL IV ; Start 02/23/19 at 11:30 Ondansetron HCl (Zofran Inj) 4 mg Q6H PRN IV NAUSEA/VOMITING; Start 02/23/19 at 11:30 Acetaminophen (Tylenol Tab) 650 mg Q6H PRN PO .PAIN 1-3 OR TEMP; Start 02/23/19 at 11:30 Morphine Sulfate (morphine) 2 mg Q4H PRN IV .SEVERE PAIN 7-10 Last administered on 02/23/19at 11:39; Admin Dose 2 MG; Start 02/23/19 at 11:30 Heparin Sodium (Porcine) (Heparin (5000 Units/1ml)) 5,000 unit Q12 SC ; Start 02/23/19 at 21:00 Pantoprazole (Protonix Iv) 40 mg BID@06,18 IV ; Start 02/23/19 at 18:00 URSULA JACKSON MD Feb 23, 2019 17:25
[2019-02-23] MEDS: PANTOPRAZOLE 40 MG INJ IV SCH (18:03)
[2019-02-23 19:54] VITALS: BP 134/70; PULSE 55; RESP 18
[2019-02-23] MEDS: HEPARIN 5,000 UNIT/1 ML VIAL SC SCH (20:26)
[2019-02-23] MEDS ORDERED: FAMOTIDINE 20 MG INJ IV SCH (21:00)
[2019-02-24] VITALS (26 sets, daily range): BP systolic 112–187; BP diastolic 59–91; PULSE 50–67; RESP 11–21
[2019-02-24] MEDS: PANTOPRAZOLE 40 MG INJ IV SCH (05:33)
[2019-02-24] MEDS: morphine 2 MG INJ IV PRN ×2 (05:51→20:26)
[2019-02-24] MEDS: HEPARIN 5,000 UNIT/1 ML VIAL SC SCH ×2 (08:51→20:31)
--- NOTE | 2019-02-24 09:35 | PREAC ---
Date/Time of Note Date/Time of Note DATE: 02/24/19 TIME: 09:32 Anesthesia Eval and Record Evaluation Time Pre-Procedure Interview DATE: 02/24/19 TIME: 09:32 Age 63 Sex male NPO: 8 hrs Preoperative diagnosis small bowel obstruction Planned procedure Exploratory Laparotomy poss SBO resection Past Medical History Past Medical History: Includes Pulm: Smoking Hx Hepatic: Alcohol abuse Surgery & Anesthesia Issues No known issue Meds Anticoagulation: No Beta Jory within 24 hr: No Reason Beta Jory not given: Pt. not on B-Jory No Active Prescriptions or Reported Meds Current Medications Potassium Chloride/Dextrose/ Sod Cl 1,000 ml @ 80 mls/hr [id number] IV Last administered on 02/23/19at 23:41; Admin Dose 80 MLS/HR; Start 02/23/19 at 11:21 IV Flush (NS 3 ml) 3 ml PER PROTOCOL IV ; Start 02/23/19 at 11:30 Ondansetron HCl (Zofran Inj) 4 mg Q6H PRN IV NAUSEA/VOMITING; Start 02/23/19 at 11:30 Acetaminophen (Tylenol Tab) 650 mg Q6H PRN PO .PAIN 1-3 OR TEMP; Start 02/23/19 at 11:30 Morphine Sulfate (morphine) 2 mg Q4H PRN IV .SEVERE PAIN 7-10 Last administered on 02/24/19at 05:51; Admin Dose 2 MG; Start 02/23/19 at 11:30 Heparin Sodium (Porcine) (Heparin (5000 Units/1ml)) 5,000 unit Q12 SC Last administered on 02/24/19at 08:51; Admin Dose 5,000 UNIT; Start 02/23/19 at 21:00 Pantoprazole (Protonix Iv) 40 mg BID@06,18 IV Last administered on 02/24/19at 05:33; Admin Dose 40 MG; Start 02/23/19 at 18:00 Meds reviewed: Yes Allergies Coded Allergies: No Known Drug Allergy (Verified Allergy, Unknown, 02/23/19) Allergies Reviewed: Yes Labs/Studies Labs Reviewed: Reviewed by anesthesiologist Result Diagram: 02/24/19 0436 02/24/19 0436 Laboratory Tests 02/24/19 04:36 test: N/A Studies: ECG (nsr, nml), CXR (no active disease) Pre-procedure Exam Last vitals Vital Signs Date Temp Pulse Resp B/P (MAP) Pulse Ox O2 O2 Flow FiO2 Time Delivery Rate 02/24/19 98.9 67 18 126/70 95 Room Air 02:40 (88) Airway: Adequate mouth opening, Adequate thyromental dist Mallampati: Mallampati II Teeth: Abnormal (upper and lower dentures) Lung: Normal Heart: Normal ASA Physical Status ASA physical status: 2 Emergency: E Planned Anesthetic General/MAC: ETT Planned Pain Management Single shot nerve block (pt accepts to receive bilateral tap blocks) Pre-operative Attestations Prior to commencing anesthesia and surgery, the patient was re-evaluated, there was verification of: *The patient's identity *The results of appropriate recent lab work and preoperative vital signs *The above evaluation not changing prior to induction *Anesthetic plan, risk benefits, alternative and complications discussed with patient/family; questions answered; patient/family understands, accepts and wishes to proceed. [employer] Delivery Driver used DEIDRE RICHARD Feb 24, 2019 09:35
--- NOTE | 2019-02-24 11:20 | PN ---
Date/Time of Note Date/Time of Note DATE: 02/24/19 TIME: 11:17 Assessment/Plan VTE Prophylaxis Risk score (from Nsg)>0 risk: 3 SCD applied (from Nsg): Yes Pharmacological prophylaxis: NA/contraindicated Pharm contraindication: low risk/ambulating Lines/Catheters IV Catheter Type (from Nrsg): Peripheral IV Urinary Cath still in place: No Assessment/Plan Assessment/Plan 1. Abdominal pain secondary to SBO - General surgery on board and appreciate consultation - Pt admits to BM this am with improvement in abdominal pain. will order SBFT and if no obstruction appreciated, remove NG and advance diet - continue IVF - pain control 2. History of alcohol abuse - cessation advised 3. Tobacco abuse - Cessation counseling provided 4. Leukocytosis - resolved - most likely reactive 5. Disposition - Will check SBFT and plan of care based on results Result Diagram: 02/24/19 0436 02/24/19 0436 Results 24hrs Laboratory Tests Test 02/24/19 04:36 White Blood Count 8.9 # Red Blood Count 4.59 L Hemoglobin 14.8 Hematocrit 44.6 Mean Corpuscular Volume 97.2 Mean Corpuscular Hemoglobin 32.2 Mean Corpuscular Hemoglobin Concent 33.2 Red Cell Distribution Width 12.5 Platelet Count 226 Mean Platelet Volume 9.7 Immature Granulocytes % 0.300 Neutrophils % 73.3 Lymphocytes % 16.7 Monocytes % 8.5 Eosinophils % 0.9 Basophils % 0.3 Nucleated Red Blood Cells % 0.0 Immature Granulocytes # 0.030 Neutrophils # 6.5 Lymphocytes # 1.5 Monocytes # 0.8 Eosinophils # 0.1 Basophils # 0.0 Nucleated Red Blood Cells # 0.0 Sodium Level 139 Potassium Level 4.1 Chloride Level 106 Carbon Dioxide Level 30 Anion Gap 3 L Blood Urea Nitrogen 8 Creatinine 0.67 Est Glomerular Filtrat Rate mL/min > 60 Glucose Level 121 Hemoglobin A1c 5.2 Calcium Level 9.1 Phosphorus Level 2.9 Magnesium Level 2.0 Total Bilirubin 0.9 Direct Bilirubin 0.00 Indirect Bilirubin 0.9 Aspartate Amino Transf (AST/SGOT) 21 Alanine Aminotransferase (ALT/SGPT) 21 Alkaline Phosphatase 52 Total Protein 6.4 # Albumin 3.6 Globulin 2.80 Albumin/Globulin Ratio 1.28 Triglycerides Level 90 Cholesterol Level 166 LDL Cholesterol, Calculated 96 HDL Cholesterol 52 Cholesterol/HDL Ratio 3.1 Thyroid Stimulating Hormone (TSH) 0.786 Free Thyroxine Index 2.83 Thyroxine (T4) 6.5 Triiodothyronine (T3) Uptake 43.5 H Subjective 24 Hr Interval Summary Free Text/Dictation Patient admits to this am and abdominal pain has improved. No acute overnight events. Exam/Review of Systems Exam Vitals Vital Signs Date Temp Pulse Resp B/P (MAP) Pulse Ox O2 O2 Flow FiO2 Time Delivery Rate 02/24/19 98.6 57 18 117/90 99 Room Air 10:51 (99) Intake and Output 02/23/19 02/23/19 02/24/19 1515:00 23:00 07:00 IntakeIntake Total 430 ml 970 ml OutputOutput Total 300 ml 400 ml BalanceBalance 130 ml 570 ml Exam General: no acute distress. answering questions appropriately HEENT: NC/AT. PERRL. EOM intact. NG tube in place Neck: supple Chest: nontender CVS: S1, S2, regular rate and rhythm. no murmurs Lungs: clear to auscultation bilaterally. no wheezing or rhonchi Abd: soft, nontender, nondistended. no rebound or guarding. bowel sounds present diffusely Ext: moving all extremities. no cyanosis, clubbing, or edema Skin: warm, dry Results Results 24hrs Laboratory Tests Test 02/24/19 04:36 White Blood Count 8.9 # Red Blood Count 4.59 L Hemoglobin 14.8 Hematocrit 44.6 Mean Corpuscular Volume 97.2 Mean Corpuscular Hemoglobin 32.2 Mean Corpuscular Hemoglobin Concent 33.2 Red Cell Distribution Width 12.5 Platelet Count 226 Mean Platelet Volume 9.7 Immature Granulocytes % 0.300 Neutrophils % 73.3 Lymphocytes % 16.7 Monocytes % 8.5 Eosinophils % 0.9 Basophils % 0.3 Nucleated Red Blood Cells % 0.0 Immature Granulocytes # 0.030 Neutrophils # 6.5 Lymphocytes # 1.5 Monocytes # 0.8 Eosinophils # 0.1 Basophils # 0.0 Nucleated Red Blood Cells # 0.0 Sodium Level 139 Potassium Level 4.1 Chloride Level 106 Carbon Dioxide Level 30 Anion Gap 3 L Blood Urea Nitrogen 8 Creatinine 0.67 Est Glomerular Filtrat Rate mL/min > 60 Glucose Level 121 Hemoglobin A1c 5.2 Calcium Level 9.1 Phosphorus Level 2.9 Magnesium Level 2.0 Total Bilirubin 0.9 Direct Bilirubin 0.00 Indirect Bilirubin 0.9 Aspartate Amino Transf (AST/SGOT) 21 Alanine Aminotransferase (ALT/SGPT) 21 Alkaline Phosphatase 52 Total Protein 6.4 # Albumin 3.6 Globulin 2.80 Albumin/Globulin Ratio 1.28 Triglycerides Level 90 Cholesterol Level 166 LDL Cholesterol, Calculated 96 HDL Cholesterol 52 Cholesterol/HDL Ratio 3.1 Thyroid Stimulating Hormone (TSH) 0.786 Free Thyroxine Index 2.83 Thyroxine (T4) 6.5 Triiodothyronine (T3) Uptake 43.5 H Medications Medication Current Medications Potassium Chloride/Dextrose/ Sod Cl 1,000 ml @ 80 mls/hr [id number] IV Last administered on 02/23/19 23:41; Admin Dose 80 MLS/HR; Start 02/23/19 at 11:21 IV Flush (NS 3 ml) 3 ml PER PROTOCOL IV ; Start 02/23/19 at 11:30 Ondansetron HCl (Zofran Inj) 4 mg Q6H PRN IV NAUSEA/VOMITING; Start 02/23/19 at 11:30 Acetaminophen (Tylenol Tab) 650 mg Q6H PRN PO .PAIN 1-3 OR TEMP; Start 02/23/19 at 11:30 Morphine Sulfate (morphine) 2 mg Q4H PRN IV .SEVERE PAIN 7-10 Last administered on 02/24/19 05:51; Admin Dose 2 MG; Start 02/23/19 at 11:30 Heparin Sodium (Porcine) (Heparin (5000 Units/1ml)) 5,000 unit Q12 SC Last administered on 02/24/19 08:51; Admin Dose 5,000 UNIT; Start 02/23/19 at 21:00 Pantoprazole (Protonix Iv) 40 mg BID@06,18 IV Last administered on 02/24/19 05:33; Admin Dose 40 MG; Start 02/23/19 at 18:00 DANNY BRUCE MD Feb 24, 2019 11:20
[2019-02-24] MEDS ORDERED: PHENOL 1.4% SOLN 180 ML BTL MT PRN (12:30)
[2019-02-24] MEDS: D5W-0.45 NACL + KCL 20 MEQ 1,000 ML IV SCH ×2 (12:45→18:19)
--- NOTE | 2019-02-24 13:34 | PN ---
Date/Time of Note Date/Time of Note DATE: 02/24/19 TIME: 13:31 Assessment/Plan Lines/Catheters IV Catheter Type (from [facility]): Peripheral IV Navarrete in Place (from [facility]): No Assessment/Plan Chief Complaint/Hosp Course Small bowel obstruction without previous surgery. Recurrent episodes. This is episode #4 or small bowel obstruction. Assessment/Plan Patient with recurrent episodes of small bowel obstruction without previous surgery. I feel the patient will benefit from exploration laparoscopic in order to rule out Meckel diverticulum adhesive band or other extrinsic pathology that can cause intermittent small bowel obstruction. I discussed risk and benefits with the patient and his son that was present at bedside. We discussed risk and benefits and patient wishes to proceed. In addition we will ask GI consult to address the coffee-ground. Since patient is stable and he is hematocrit is stable as well, I do not think there is active bleeding. Subjective 24 Hr Interval Summary Patient passed gas and had a bowel movement. He feels otherwise good but still complains of epigastric pain. New findings is a coffee-ground on his NG tube. Moderate amount. Stable. Pain Control: well controlled Exam/Review of Systems Vital Signs Vitals Vital Signs Date Temp Pulse Resp B/P (MAP) Pulse Ox O2 O2 Flow FiO2 Time Delivery Rate 02/24/19 98.6 57 18 117/90 99 Room Air 10:51 (99) Intake and Output 02/23/19 02/23/19 02/24/19 1515:00 23:00 07:00 IntakeIntake Total 430 ml 970 ml OutputOutput Total 300 ml 400 ml BalanceBalance 130 ml 570 ml Exam Constitutional: alert, oriented, well developed Psych: no complaints, nl mood/affect Head: normocephalic, atraumatic Eyes: nl conjunctiva, EOMI, nl lids, nl sclera ENMT: nl external ears & nose, nl lips & teeth, nl nasal mucosa & septum, mucosa pink and moist Neck: supple, non-tender Respiratory: clear to auscultation, normal air movement Cardiovascular: regular rate and rhythm, nl pulses Gastrointestinal: soft, nl liver, spleen, non-tender, other (NG tube drains coffee-ground.) Musculoskeletal: nl extremities to inspection, nl gait and stance Extremities: normal pulses Neurological: [employer] II-XII intact, nl mental status, nl speech, nl strength Skin: nl turgor, rash or lesions Lymph: nl lymph nodes Results Result Diagram: 02/24/19 0436 02/24/19 0436 URSULA JACKSON MD Feb 24, 2019 13:34
[2019-02-24] MEDS ORDERED: MEPERIDINE 100 MG INJ ONE (15:27)
[2019-02-24] MEDS ORDERED: NEOSTIGMINE 3 MG/3 ML SYRINGE ONE (15:27)
[2019-02-24] MEDS ORDERED: LIDOCAINE 2% (SDV) 5 ML INJ ONE (15:27)
[2019-02-24] MEDS ORDERED: ROCURONIUM 50 MG INJ ONE (15:27)
[2019-02-24] MEDS ORDERED: GLYCOPYRROLATE 0.4 MG INJ ONE ×2 (15:27→16:24)
[2019-02-24] MEDS ORDERED: PROPOFOL 20 ML ONE (15:27)
[2019-02-24] MEDS ORDERED: SUCCINYLCHOLINE CHLORIDE 100 MG/5 ML SYG IV ONE (15:27)
[2019-02-24] MEDS ORDERED: LIDOCAINE 1% (MPF) 30 ML INJ ONE (15:57)
[2019-02-24] MEDS ORDERED: BUPIVACAINE 0.5%/EPI (SDV) 30 ML INJ ONE (15:57)
[2019-02-24] MEDS ORDERED: CEFAZOLIN 1 GM INJ ONE (16:24)
--- NOTE | 2019-02-24 16:40 | OPR ---
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 General endotracheal anesthesia was induced. Abdomen was prepped and draped in usual sterile fashion. Time out was performed. After that Veress needle was placed in the supraumbilical position and abdomen was insufflated with CO2 up to 15 mmHg. 3 5 mm trochars were placed under direct vision using Optiview technique in the left abdomen. The small bowel was found to be not distended. I ran the small bowel starting from ligament of Treitz down to the ileocecal valve. At the mid jejunum portion of the small bowel I found that the 1 of the loops of small bowel was densely adherent to the mesentery of the other loop. No other abnormality was found. By dissecting this loop of the mesentery of the neighbor loop I found that there is a outpouching of the small bowel looks like diverticulum goes into the retroperitoneal area. I dissected the direct diverticulum as far as I can approximately 2 cm from the bowel wall. After that I divided the diverticulum flesh to the bowel wall and as far as a cat in the to the retroperitoneal area. I used the 45 mm vascular endoscopic stapler. The resected part of the diverticulum was sent to the pathology. hemotasis was confirmed. The small bowel was found to be without narrowing. After that the abdomen was desufflated, all the trochars were removed, 12 mm trocar was closed using 0 Vicryl to the fascia and 3-0 Monocryl to the skin. 5 mm trocars were closed just using 3-0 Monocryl. Tolerated procedure well was extubated transferred to recovery room URSULA JACKSON MD Feb 24, 2019 16:40
[2019-02-24] MEDS ORDERED: ONDANSETRON 4 MG INJ IV PRN ×2 (17:00)
[2019-02-24] MEDS ORDERED: ACETAMINOPHEN 325 MG TAB PO PRN (17:00)
[2019-02-24] MEDS ORDERED: METOCLOPRAMIDE 10 MG INJ IV PRN (17:00)
[2019-02-24] MEDS ORDERED: HYDROmorphONE 0.5 MG/0.5 ML SYG IV PRN (17:00)
[2019-02-24] MEDS ORDERED: DIPHENHYDRAMINE 50 MG INJ IV PRN ×2 (17:00)
[2019-02-24] MEDS ORDERED: MEPERIDINE 25 MG INJ IV PRN (17:00)
[2019-02-24] MEDS ORDERED: EPHEDrine 25 MG/5 ML SYG IV PRN (17:00)
[2019-02-24] MEDS ORDERED: LABETALOL HCL 20MG INJ IV PRN (17:00)
[2019-02-24] MEDS ORDERED: MIDAZOLAM 1 MG/ML 2 ML INJ IV PRN (17:00)
[2019-02-24] MEDS ORDERED: hydrALAzine 20 MG INJ IV PRN (17:00)
[2019-02-24] MEDS ORDERED: FENTAnyl 50 MCG/ML VIAL IV PRN ×3 (17:00)
[2019-02-24] MEDS ORDERED: HYDROmorphONE 1 MG/5 ML IV SYRINGE IV PRN ×3 (17:00)
--- NOTE | 2019-02-24 17:49 | QN ---
Documentation Comment Patient currently off the floor in the operating room. We will try to ree valuate upon return or tomorrow. DENIZ MACHADO Feb 24, 2019 17:49
--- NOTE | 2019-02-24 18:18 | PAC ---
Date/Time of Note Date/Time of Note DATE: 02/24/19 TIME: 18:17 Post-Anesthesia Notes Post-Anesthesia Note Last documented vital signs Vital Signs Date Temp Pulse Resp B/P (MAP) Pulse Ox O2 O2 Flow FiO2 Time Delivery Rate 02/24/19 98.8 53 169/78 96 Room Air 18:09 (108) 02/24/19 21 17:53 Activity: WNL Respiratory function: WNL Cardiovascular function: WNL Mental status: Baseline Pain reasonably controlled: Yes Hydration appropriate: Yes Nausea/Vomiting absent: Yes HERBERT BUSTILLOS MD Feb 24, 2019 18:18
[2019-02-25 02:06] VITALS: BP 103/55; PULSE 58; RESP 18
[2019-02-25] MEDS: morphine 2 MG INJ IV PRN (02:32)
[2019-02-25] MEDS: D5W-0.45 NACL + KCL 20 MEQ 1,000 ML IV SCH ×2 (04:27→14:32)
[2019-02-25] MEDS: PANTOPRAZOLE 40 MG INJ IV SCH ×2 (05:52→08:42)
[2019-02-25] MEDS ORDERED: PANTOPRAZOLE 40 MG INJ IV SCH (06:00)
[2019-02-25 08:02] VITALS: BP 120/67; PULSE 51; RESP 18
[2019-02-25] MEDS: HEPARIN 5,000 UNIT/1 ML VIAL SC SCH (08:44)
--- NOTE | 2019-02-25 10:38 | PN ---
Date/Time of Note Date/Time of Note DATE: 02/25/19 TIME: 10:33 Assessment/Plan VTE Prophylaxis Risk score (from Ns)>0 risk: 5 SCD applied (from [facility] [place] [facility]): Yes Pharmacological prophylaxis: NA/contraindicated Pharm contraindication: bleeding Lines/Catheters IV Catheter Type (from [facility]): Peripheral IV Urinary Cath still in place: No Assessment/Plan Assessment/Plan 1. Abdominal pain secondary to SBO s/p small diverculum resection - General surgery consultation appreciated. Patient is s/p resection of small diverticulum 02/24/19. Okay for discharge but concerned about coffee ground seen while NG tube in place - pain control 2. ? UGIB - coffee ground emesis noted while NG tube in place - GI consulted for further recommendations and possible EGD - H/H remains stable - PPI on board 3. History of alcohol abuse - cessation advised - no DTs noted 4. Tobacco abuse - Cessation counseling provided 5. Disposition - Awaiting GI evaluation to see if EGD is warranted at this time. Once stable, will d/c home Result Diagram: 02/25/19 0432 02/25/19 0432 Results 24hrs Laboratory Tests Test 02/25/19 04:32 White Blood Count 11.2 #H Red Blood Count 4.42 L Hemoglobin 14.3 Hematocrit 42.9 Mean Corpuscular Volume 97.1 Mean Corpuscular Hemoglobin 32.4 Mean Corpuscular Hemoglobin Concent 33.3 Red Cell Distribution Width 12.6 Platelet Count 214 Mean Platelet Volume 10.0 Immature Granulocytes % 0.400 Neutrophils % 72.0 Lymphocytes % 18.9 Monocytes % 7.9 Eosinophils % 0.6 Basophils % 0.2 Nucleated Red Blood Cells % 0.0 Immature Granulocytes # 0.040 H Neutrophils # 8.1 H Lymphocytes # 2.1 Monocytes # 0.9 Eosinophils # 0.1 Basophils # 0.0 Nucleated Red Blood Cells # 0.0 Sodium Level 140 Potassium Level 4.0 Chloride Level 107 Carbon Dioxide Level 28 Anion Gap 5 Blood Urea Nitrogen 6 L Creatinine 0.70 Glucose Level 95 Calcium Level 8.7 Phosphorus Level 3.2 Magnesium Level 2.0 Albumin 3.3 Subjective 24 Hr Interval Summary Free Text/Dictation Patient denies any issues and pain controlled with Morphine. No episodes of coffee ground emesis noted today. Exam/Review of Systems Exam Vitals Vital Signs Date Temp Pulse Resp B/P (MAP) Pulse Ox O2 O2 Flow FiO2 Time Delivery Rate 02/25/19 99.0 51 18 120/67 97 Room Air 08:02 (84) Intake and Output 02/24/19 02/24/19 02/25/19 1515:00 23:00 07:00 IntakeIntake Total 600 ml 1550 ml 1250 ml OutputOutput Total 300 ml 10 ml BalanceBalance 300 ml 1540 ml 1250 ml Exam General: no acute distress. answering questions appropriately Neck: supple CVS: S1, S2, regular rate and rhythm. no murmurs Lungs: clear to auscultation bilaterally. no wheezing or rhonchi Abd: soft, mildly tender surgical incision sites, nondistended. no rebound or guarding. bowel sounds present diffusely Ext: moving all extremities. no cyanosis, clubbing, or edema Skin: warm, dry. incision sites CDI Results Results 24hrs Laboratory Tests Test 02/25/19 04:32 White Blood Count 11.2 #H Red Blood Count 4.42 L Hemoglobin 14.3 Hematocrit 42.9 Mean Corpuscular Volume 97.1 Mean Corpuscular Hemoglobin 32.4 Mean Corpuscular Hemoglobin Concent 33.3 Red Cell Distribution Width 12.6 Platelet Count 214 Mean Platelet Volume 10.0 Immature Granulocytes % 0.400 Neutrophils % 72.0 Lymphocytes % 18.9 Monocytes % 7.9 Eosinophils % 0.6 Basophils % 0.2 Nucleated Red Blood Cells % 0.0 Immature Granulocytes # 0.040 H Neutrophils # 8.1 H Lymphocytes # 2.1 Monocytes # 0.9 Eosinophils # 0.1 Basophils # 0.0 Nucleated Red Blood Cells # 0.0 Sodium Level 140 Potassium Level 4.0 Chloride Level 107 Carbon Dioxide Level 28 Anion Gap 5 Blood Urea Nitrogen 6 L Creatinine 0.70 Glucose Level 95 Calcium Level 8.7 Phosphorus Level 3.2 Magnesium Level 2.0 Albumin 3.3 Medications Medication Current Medications IV Flush (NS 3 ml) 3 ml PER PROTOCOL IV ; Start 02/23/19 at 11:30 Acetaminophen (Tylenol Tab) 650 mg Q6H PRN PO .PAIN 1-3 OR TEMP; Start 02/23/19 at 11:30 Morphine Sulfate (morphine) 2 mg Q4H PRN IV .SEVERE PAIN 7-10 Last administered on 02/25/19at 02:32; Admin Dose 2 MG; Start 02/23/19 at 11:30 Heparin Sodium (Porcine) (Heparin (5000 Units/1ml)) 5,000 unit Q12 SC Last administered on 02/25/19at 08:44; Admin Dose 5,000 UNIT; Start 02/23/19 at 21:00 Ondansetron HCl (Zofran Inj) 4 mg Q6H PRN IV NAUSEA AND/OR VOMITING; Start 02/24/19 at 17:00 Hydromorphone HCl (Dilaudid) 0.5 mg Q4H PRN IV PAIN LEVEL 8-10; Start 02/24/19 at 17:00 Potassium Chloride/Dextrose/ Sod Cl 1,000 ml @ 100 mls/hr Q10H IV Last administered on 02/25/19at 04:27; Admin Dose 100 MLS/HR; Start 02/24/19 at 16:31 Diphenhydramine HCl (Benadryl) 25 mg Q6H PRN IV PRURITUS; Start 02/24/19 at 17:00 Pantoprazole (Protonix Iv) 40 mg BID IV Last administered on 02/25/19at 08:42; Admin Dose 40 MG; Start 02/25/19 at 06:00 DANNY BRUCE MD Feb 25, 2019 10:38
--- NOTE | 2019-02-25 13:46 | CONS ---
Assessment/Plan Assessment/Plan Hospital Course (Demo Recall) Summary Assessment and Plan: Assessment: Coffee-ground emesis via NGT SBO S/p Exp laparotomy 02/24/19 -Resection of the small bowel diverticulum History of Alcohol abuse Plan: Diet per surgery HGB stable- no further evidence of GI bleed- no plan for endoscopic evaluation at this time PPI/Carafate Commend patient to follow-up after discharge for possible outpatient EGD Monitor for overt signs of GI bleed Patient seen in collaboration with Dr. rogers CC: ROSE ROGERS MD ; Consultation Date/Type/Reason Admit Date/Time Feb 23, 2019 at 09:48 Date of Consultation: Feb 25, 2019 Type of Consult GI Reason for Consultation Coffee-ground emesis Date/Time of Note DATE: 02/25/19 TIME: 13:43 Hx of Present Illness This is a 63-year-old male is primarily Slovak speaking. With history of small bowel obstruction, and heavy alcohol use who presented to the hospital with complaints of abdominal pain. With work-up patient diagnosed with small bowel obstruction, NG tube was placed with large amount of coffee-ground drainage noted. GI was then consulted for further evaluation. Additionally patient was seen by surgery took patient to surgery yesterday for exploratory laparotomy he is status post section of small bowel diverticulum. Patient with hemoglobin despite large amount of coffee-ground drainage noted hemoglobin on admission was 15.3 today hemoglobin is noted to be 14.3 early there are no overt signs of GI bleed patient denies severe epigastric pain and notes only surgical pain. At this time there is no plan for endoscopic evaluation patient currently denies further episodes of hematemesis, coffee-ground emesis, nausea, vomiting, melena, hematochezia, diarrhea or constipation. Post surgery he is passing gas and has yet to have a bowel movement. Review of Systems: A 12 system, review was conducted and is negative except as noted in the HPI or here. Past Medical History Medical History: hypertension Home Meds No Active Prescriptions or Reported Meds Medications Current Medications IV Flush (NS 3 ml) 3 ml PER PROTOCOL IV ; Start 02/23/19 at 11:30 Acetaminophen (Tylenol Tab) 650 mg Q6H PRN PO .PAIN 1-3 OR TEMP; Start 02/23/19 at 11:30 Morphine Sulfate (morphine) 2 mg Q4H PRN IV .SEVERE PAIN 7-10 Last administered on 02/25/19at 02:32; Admin Dose 2 MG; Start 02/23/19 at 11:30 Heparin Sodium (Porcine) (Heparin (5000 Units/1ml)) 5,000 unit Q12 SC Last administered on 02/25/19at 08:44; Admin Dose 5,000 UNIT; Start 02/23/19 at 21:00 Ondansetron HCl (Zofran Inj) 4 mg Q6H PRN IV NAUSEA AND/OR VOMITING; Start 02/24/19 at 17:00 Hydromorphone HCl (Dilaudid) 0.5 mg Q4H PRN IV PAIN LEVEL 8-10; Start 02/24/19 at 17:00 Potassium Chloride/Dextrose/ Sod Cl 1,000 ml @ 100 mls/hr Q10H IV Last administered on 02/25/19at 04:27; Admin Dose 100 MLS/HR; Start 02/24/19 at 16:31 Diphenhydramine HCl (Benadryl) 25 mg Q6H PRN IV PRURITUS; Start 02/24/19 at 17:00 Pantoprazole (Protonix Iv) 40 mg BID IV Last administered on 02/25/19at 08:42; Admin Dose 40 MG; Start 02/25/19 at 06:00 Allergies: Coded Allergies: No Known Drug Allergy (Verified Allergy, Unknown, 02/23/19) Past Surgical History Past Surgical Hx: no surgical history Social History Alcohol Use: heavy Smoking Status: Current every day smoker Drug Use: none Exam/Review of Systems Exam Vitals Vital Signs Date Temp Pulse Resp B/P (MAP) Pulse Ox O2 O2 Flow FiO2 Time Delivery Rate 02/25/19 99.0 51 18 120/67 97 Room Air 08:02 (84) Intake and Output 02/24/19 02/24/19 02/25/19 1515:00 23:00 07:00 IntakeIntake Total 600 ml 1550 ml 1250 ml OutputOutput Total 300 ml 10 ml BalanceBalance 300 ml 1540 ml 1250 ml Exam PHYSICAL EXAMINATION: GENERAL: Alert & oriented x 3, in no acute distress SKIN: Surgical incisions HEAD: Normocephalic, atraumatic, no tenderness. EYES: Pupils equal reactive to light and accommodation, no discharge. EARS/NOSE AND THROAT: Ears normal, nose normal, oropharynx normal. NECK: Supple, no masses. CHEST: Inspection within normal limits. CARDIOVASCULAR: Heart: Regular rate and rhythm RESPIRATORY: Lungs clear to auscultation GASTROINTESTINAL AND LIVER: Abdomen: Soft, non tenderness, non-distended, normoactive bowel sounds. Rectal: Deferred. GENITOURINARY: Male genitalia within normal limits. EXTREMITIES: No cyanosis, clubbing or edema. Results Result Diagram: 02/25/19 0432 02/25/19 0432 Results 24hrs Laboratory Tests Test 02/25/19 04:32 White Blood Count 11.2 #H Red Blood Count 4.42 L Hemoglobin 14.3 Hematocrit 42.9 Mean Corpuscular Volume 97.1 Mean Corpuscular Hemoglobin 32.4 Mean Corpuscular Hemoglobin Concent 33.3 Red Cell Distribution Width 12.6 Platelet Count 214 Mean Platelet Volume 10.0 Immature Granulocytes % 0.400 Neutrophils % 72.0 Lymphocytes % 18.9 Monocytes % 7.9 Eosinophils % 0.6 Basophils % 0.2 Nucleated Red Blood Cells % 0.0 Immature Granulocytes # 0.040 H Neutrophils # 8.1 H Lymphocytes # 2.1 Monocytes # 0.9 Eosinophils # 0.1 Basophils # 0.0 Nucleated Red Blood Cells # 0.0 Sodium Level 140 Potassium Level 4.0 Chloride Level 107 Carbon Dioxide Level 28 Anion Gap 5 Blood Urea Nitrogen 6 L Creatinine 0.70 Glucose Level 95 Calcium Level 8.7 Phosphorus Level 3.2 Magnesium Level 2.0 Albumin 3.3 Medications Medication Current Medications IV Flush (NS 3 ml) 3 ml PER PROTOCOL IV ; Start 02/23/19 at 11:30 Acetaminophen (Tylenol Tab) 650 mg Q6H PRN PO .PAIN 1-3 OR TEMP; Start 02/23/19 at 11:30 Morphine Sulfate (morphine) 2 mg Q4H PRN IV .SEVERE PAIN 7-10 Last administered on 02/25/19at 02:32; Admin Dose 2 MG; Start 02/23/19 at 11:30 Heparin Sodium (Porcine) (Heparin (5000 Units/1ml)) 5,000 unit Q12 SC Last administered on 02/25/19at 08:44; Admin Dose 5,000 UNIT; Start 02/23/19 at 21:00 Ondansetron HCl (Zofran Inj) 4 mg Q6H PRN IV NAUSEA AND/OR VOMITING; Start 02/24/19 at 17:00 Hydromorphone HCl (Dilaudid) 0.5 mg Q4H PRN IV PAIN LEVEL 8-10; Start 02/24/19 at 17:00 Potassium Chloride/Dextrose/ Sod Cl 1,000 ml @ 100 mls/hr Q10H IV Last administered on 02/25/19at 04:27; Admin Dose 100 MLS/HR; Start 02/24/19 at 16:31 Diphenhydramine HCl (Benadryl) 25 mg Q6H PRN IV PRURITUS; Start 02/24/19 at 17:00 Pantoprazole (Protonix Iv) 40 mg BID IV Last administered on 02/25/19at 08:42; Admin Dose 40 MG; Start 02/25/19 at 06:00 DENIZ MACHADO Feb 25, 2019 13:45
[2019-02-25 15:30] VITALS: BP 129/75; PULSE 57; RESP 18
[2019-02-25] MEDS ORDERED: HYDROCODONE/APAP (5/325) TAB PO PRN (15:30)
[2019-02-25] MEDS ORDERED: PANT40TA4 PO (16:39)
[2019-02-25] MEDS ORDERED: SUCR1TAB56 PO (16:39)
--- NOTE | 2019-02-25 16:45 | PDOCDIS ---
Discharge Instructions DIAGNOSIS Discharge Diagnosis 1. Abdominal pain secondary to SBO s/p small diverticulum resection 2. History of alcohol abuse 3. Tobacco abuse CONDITION [id number] Patient Condition: [id number] Stable HOME CARE INSTRUCTIONS: [id number] Diet Instructions: [id number] Low Fat /Cholesterol FOLLOW UP/APPOINTMENTS Follow-up Plan 1. Follow up with your primary care physician in 1-2 weeks 2. Follow up with Dr. Rg for postoperative evaluation. Please call his office to make an appointment 3. Follow up with GI in 6-8 weeks for outpatient EGD. Please continue pantoprazole twice a day until you see the GI specialist. Take Carafate four times a day for the next 14 days 4. Continue on a healthy diet and avoid spicy, greasy, and fatty foods 5. If experiencing any concerning symptoms, please go to your nearest emergency department REFERRALS Other Referrals Joey Rg MD Specialty General Surgery Comments Office Address [address] [place] [address] Office Dinora Powell MD Specialty Gastroenterology Comments Office Address [address] [place] [address] Office DANNY BRUCE MD Feb 25, 2019 16:45
[2019-02-25] MEDS ORDERED: HYDR-3601 PO (16:48)
--- NOTE | 2019-02-25 16:56 | RADRPT ---
Vent Rate: 54 bpm RR Interval: 1120 msec PA Interval: 136 msec QRS Duration: 107 msec QT Interval: 416 msec QTC Interval: 393 msec P-R-T [place]: 49 - 81 - 49 degrees Sinus rhythm...normal P axis, V-rate 50- [address] elevation, anterior leads...ST >0.15mV in V1-V4 Electronically Signed By: Geoff Jones
[2019-02-25] MEDS ORDERED: SUCRALFATE (100 MG/ML) 10ML CUP PO SCH (17:00)
--- NOTE | 2019-02-25 17:11 | DS ---
Date/Time of Note Date/Time of Note DATE: 02/25/19 TIME: 17:08 Discharge Summary Admission/Discharge Info Admit Date/Time Feb 23, 2019 at 09:48 Discharge Date/Time 02/25/19 Discharge Diagnosis 1. Abdominal pain secondary to SBO s/p small diverticulum resection 2. History of alcohol abuse 3. Tobacco abuse Patient Condition: Stable Consults General surgery- Dr. Rg GI- Dr. Powell Procedures Operative Report Procedure Date: Feb 24, 2019 Preoperative Diagnosis Small bowel obstruction Postoperative Diagnosis Small bowel obstruction secondary to small bowel diverticulum Operation/Procedure Performed Resection of the small bowel diverticulum Hx of Present Illness This is a 63-year-old male with history of SBO in [place] roughly a year ago with that was resolved with conservative treatment, SBO in October 2018, chronic daily alcohol drinker and cigarette smoker, who came to the hospital today again for abdominal pain secondary to SBO. Patient reports his last bowel movement was this morning which was normal. He currently works as a executive chef assistant and reportedly was preparing food when he had abdominal pain again that was sharp diffuse on his abdomen. As such he was brought to [facility] for further evaluation. Patient did have CT abdomen pelvis showing mid to distal small bowel obstruction with sharply marginated transition left anterior pelvis. There is also seen a stable 17 mm calcified mass posterior segment of the right lobe of the liver. Patient remains alert and oriented. He still reports diffuse pain. Reports nausea but no vomiting. No reports of fever or dysuria or chest pain. We will evaluate him for the aformentiond issues. Hospital Course Patient was admitted for treatment of small bowel obstruction seen on CT scan A/P and General surgery was consulted. NG tube was placed and continued on low suction. Given recurrence of symptoms, patient was taken to OR and small diverticulum were resected. Patient tolerated surgical intervention well. Prior to surgery, coffee ground emesis was noted from NG tube and GI was consulted. Given stable hemoglobin and vitals, GI recommended PPI and Carafate and outpatient follow up for possible EGD. Patient was able to tolerate PO intake and pain controlled with PO Sullivan. Patient was cleared for discharge from surgical standpoint and discharged home in good condition. Home Meds Active Scripts Hydrocodone Bit-Acetaminophen (Hydrocodone Bit-APAP) 5-325MG Tablet, 1 TAB PO Q4H PRN for MODERATE PAIN LEVEL 4-6 for 5 Days, #20 TAB Prov:DANNY BRUCE MD 02/25/19 Pantoprazole* (Pantoprazole*) 40 Mg Tablet., 40 MG PO BID for 30 Days, #60 TAB Prov:DANNY BRUCE MD 02/25/19 Sucralfate* (Carafate*) 1 Gm Tab, 1 GM PO Q6 for 14 Days, #56 TAB Prov:DANNY BRUCE MD 02/25/19 Follow-up Plan 1. Follow up with your primary care physician in 1-2 weeks 2. Follow up with Dr. Rg for postoperative evaluation. Please call his office to make an appointment 3. Follow up with GI in 6-8 weeks for outpatient EGD. Please continue pantoprazole twice a day until you see the GI specialist. Take Carafate four times a day for the next 14 days 4. Continue on a healthy diet and avoid spicy, greasy, and fatty foods 5. If experiencing any concerning symptoms, please go to your nearest emergency department Primary Care Provider Not On Staff Doctor Time spent on discharge: > 30 minutes Pending Labs Laboratory Tests Test 02/25/19 04:32 White Blood Count 11.2 10^3/ul (4.8-10.8) Red Blood Count 4.42 10^6/ul (4.70-6.10) Hemoglobin 14.3 g/dl (14.0-18.0) Hematocrit 42.9 % (42.0-52.0) Mean Corpuscular Volume 97.1 fl (82.0-101.0) Mean Corpuscular Hemoglobin 32.4 pg (29.0-33.0) Mean Corpuscular Hemoglobin Concent 33.3 g/dl (32.0-37.0) Red Cell Distribution Width 12.6 % (11.5-14.5) Platelet Count 214 10^3/UL (140-415) Mean Platelet Volume 10.0 fl (7.4-10.4) Immature Granulocytes % 0.400 % (0.001-0.429) Neutrophils % 72.0 % (39.0-77.0) Lymphocytes % 18.9 % (15.0-51.0) Monocytes % 7.9 % (0.0-11.0) Eosinophils % 0.6 % (0.0-7.0) Basophils % 0.2 % (0.0-2.0) Nucleated Red Blood Cells % 0.0 /100WBC (0.0-0.0) Immature Granulocytes # 0.040 10^3/ul (0.0-0.031) Neutrophils # 8.1 10^3/ul (1.6-7.5) Lymphocytes # 2.1 10^3/ul (0.8-2.9) Monocytes # 0.9 10^3/ul (0.3-0.9) Eosinophils # 0.1 10^3/ul (0.0-0.5) Basophils # 0.0 10^3/ul (0.0-0.1) Nucleated Red Blood Cells # 0.0 10^3/ul (0.0-0.0) Sodium Level 140 mmol/L (135-144) Potassium Level 4.0 mmol/L (3.5-5.1) Chloride Level 107 mmol/L (97-110) Carbon Dioxide Level 28 mmol/L (21-31) Anion Gap 5 (5-13) Blood Urea Nitrogen 6 mg/dl (7-20) Creatinine 0.70 mg/dl (0.61-1.24) Glucose Level 95 mg/dl (70-220) Calcium Level 8.7 mg/dl (8.4-10.2) Phosphorus Level 3.2 mg/dl (2.5-4.9) Magnesium Level 2.0 mg/dl (1.7-2.5) Albumin 3.3 g/dl (3.3-4.9) DANNY BRUCE MD Feb 25, 2019 17:11
[2019-02-25 19:39] VITALS: BP 112/64; PULSE 54; RESP 18
== END 2019-02-25 20:05 | disposition home or self-care (01) | DRG 331 ==
LOC: E/R 07:50 → MS1 09:48
PROVIDERS: ADMIT Internal Medicine; ATTEND Internal Medicine
PROC: 0DB84ZZ Excision of Small Intestine, Percutaneous Endoscopic Approach (ICD-10-PCS; principal; 2019-02-24 15:30)
DX: K57.10 Diverticulosis of small intestine without perforation or abscess without bleeding (principal); I10 Essential (primary) hypertension; D72.829 Elevated white blood cell count, unspecified; F10.20 Alcohol dependence, uncomplicated; F17.210 Nicotine dependence, cigarettes, uncomplicated
CPT/HCPCS: 36415; 71045; 74176; 76705; 80053; 80061; 80069; 83036; 83690; 83735; 84100; 84436; 84443; 84479; 84484; 85025; 85610; 88304; 93005; 96374; 96375; C9113; J0690; J1644; J2060; J2175; J2270; J2405; J2710; J3480

== ENCOUNTER 2019-03-03 21:37 | Inpatient (IN) | payer OTHER ==
[~2019-03-03] VITALS: Ht 162.6 cm; Wt 59.1 kg
[~2019-03-03 21:37] MED LIST: HYDR-3601 PO; PANT40TA4 PO; SUCR1TAB56 PO
[2019-03-03] MEDS ORDERED: morphine 4 MG/ML VIAL IV STA (23:45)
[2019-03-03] MEDS ORDERED: ONDANSETRON 4 MG INJ IV STA (23:45)
[2019-03-03] MEDS ORDERED: SOD CHLORIDE 0.9% 500 ML IV STA (23:45)
[2019-03-04] MEDS ORDERED: ONDANSETRON 4 MG INJ IV STA (02:09)
[2019-03-04] MEDS ORDERED: morphine 4 MG/ML VIAL IV STA (02:09)
[2019-03-04] MEDS ORDERED: ACETAMINOPHEN 325 MG TAB PO PRN (03:30)
[2019-03-04] MEDS ORDERED: ONDANSETRON 4 MG INJ IV PRN ×2 (03:30→06:00)
--- NOTE | 2019-03-04 05:40 | HP ---
Date/Time of Note Date/Time of Note DATE: 03/04/19 TIME: 05:33 Assessment/Plan VTE Prophylaxis SCD applied (from Nsg): Yes Pharmacological prophylaxis: NA/contraindicated Pharm contraindication: low risk/ambulating Lines/Catheters IV Catheter Type (from Nrsg): Saline Lock Assessment/Plan Hospital Course This is a 62-year-old male being admitted to the [facility] floor for: 1. Abdominal pain: Resolving small bowel obstruction versus recurrent early small bowel obstruction. He currently is not reporting any nausea or vomiting. He did have a bowel movement in the emergency department. Patient's abdomen is soft. At the current time we will give the patient n.p.o., will hydrate the patient with normal saline. Small bowel follow-through series after evaluation by surgery. has been consulted by the emergency department. 2. History of alcohol abuse. Check blood alcohol level, PRN Ativan 3. History of cigarette smoking. Cessation was advised. Nicotine patch DVT GI prophylaxis: SCDs, no GI prophylaxis indicated Further treatment strategy will be implemented as per the clinical course. Result Diagram: 03/04/19 0001 03/04/19 0001 Results 24hrs Laboratory Tests Test 03/04/19 00:01 White Blood Count 11.4 H Red Blood Count 4.60 L Hemoglobin 14.9 Hematocrit 44.0 Mean Corpuscular Volume 95.7 Mean Corpuscular Hemoglobin 32.4 Mean Corpuscular Hemoglobin Concent 33.9 Red Cell Distribution Width 12.2 Platelet Count 218 Mean Platelet Volume 9.5 Immature Granulocytes % 0.300 Neutrophils % 81.4 H Lymphocytes % 12.7 L Monocytes % 4.8 Eosinophils % 0.5 Basophils % 0.3 Nucleated Red Blood Cells % 0.0 Immature Granulocytes # 0.040 H Neutrophils # 9.3 H Lymphocytes # 1.5 Monocytes # 0.6 Eosinophils # 0.1 Basophils # 0.0 Nucleated Red Blood Cells # 0.0 Sodium Level 139 Potassium Level 3.5 Chloride Level 104 Carbon Dioxide Level 29 Anion Gap 6 Blood Urea Nitrogen 17 Creatinine 0.67 Est Glomerular Filtrat Rate mL/min > 60 Glucose Level 129 Calcium Level 9.5 Total Bilirubin 0.5 Direct Bilirubin 0.00 Indirect Bilirubin 0.5 Aspartate Amino Transf (AST/SGOT) 26 Alanine Aminotransferase (ALT/SGPT) 44 Alkaline Phosphatase 61 Total Protein 7.3 Albumin 4.0 Globulin 3.30 H Albumin/Globulin Ratio 1.21 Lipase 26 HPI/ROS Admit Date/Time Admit Date/Time Hx of Present Illness Chief complaint: Abdominal pain This is a 63-year-old male with a recent history of small bowel obstruction with diverticulum resection who presents to the emergency department complaining of abdominal pain x1 day. Patient reports that he was eating pork and shortly after that he started expensing abdominal pain. He did report nausea but denies any vomiting. Denies any fevers. Of note patient did have a bowel movement in the emergency department. Allergies: NKDA Allergies: NKDA Medications: Sucralfate ROS Const: As per HPI Eyes : No pain discharge or redness or change in visual acuity ENT: No pain, sore throat, congestion, congestion, dysphagia or discharge Respiratory: No shortness of breath, cough, sputum, wheezing, or pleuritic pain Cardiovascular: No chest pain, palpitation, PND, or edema GI : As per HPI Genitourinary: No dysuria, hematuria, flank pain , discharge or CVA tenderness Musculoskeletal: No joint pain, back pain, neck pain, restricted range of motion in neck or joints Skin: No rash, bruising or hives Neuro: No headache, dizziness, syncope, seizure, focal weakness Endocrine: No polyuria, polydipsia, temperature intolerance Psych: No hallucination, depression, anxiety or suicidal ideation PMH/Family/Social Past Medical History Small bowel obstruction Medications Current Medications Ondansetron HCl (Zofran Inj) 4 mg BRIDGE ORDER PRN IV NAUSEA/VOMITING; Start 03/04/19 at 03:30; Stop 03/05/19 at 03:29 Acetaminophen (Tylenol Tab) 650 mg ER BRIDGE PRN PO .MILD PAIN 1-3 OR TEMP; Start 03/04/19 at 03:30; Stop 03/05/19 at 03:29 Coded Allergies: No Known Drug Allergy (Unverified Allergy, Unknown, 03/04/19) Past Surgical History Small bowel obstruction status post diverticulum resection Family History Significant Family History: no pertinent family hx Social History Alcohol Use: heavy Smoking Status: Current every day smoker Exam/Review of Systems Vital Signs Vitals Vital Signs Date Temp Pulse Resp B/P (MAP) Pulse Ox O2 O2 Flow FiO2 Time Delivery Rate 03/04/19 50 16 138/95 98 Room Air 03:00 (109) 03/03/19 97.0 21:38 Exam Exam General: Patient is currently lying in bed, does appear to be in mild abdominal pain HEENT: Atraumatic, normocephalic. The pupils are equal, round and reactive. Extraocular motor are intact Neck: Supple with full range of motion. No rigidity or meningismus Chest: Nontender Lungs: Clear to auscultation bilaterally no crackles rales or wheezing Heart: Normal S1-S2, Regular rhythm and rate. No murmur, S3, or S4 Abdomen: Soft , generalized tenderness to palpation, surgical scars present, nondistended , bowel sounds are present. No guarding no rebound tenderness , No masses or organomegaly. No costovertebral temporal angle mass Extremities: Normal to inspection, no edema no cyanosis Neurologic: Normal mental status, speech normal, cranial nerves II through XII are intact, motor and sensory are intact, Additional Comments PROCEDURE: CT ABDOMEN/PELVIS WITHOUT CONTRAST CLINICAL INDICATION: 63-year-old male with abdominal pain. TECHNIQUE: The study was performed utilizing a [employer] 64-slice CT scanner. Direct axial sections were obtained through the abdomen and pelvis without the use of intravenous contrast material. Sagittal and coronal reformations were obtained. One or more of the following dose reduction techniques were utilized: automated exposure control, adjustment of the mA and/or kV according to patient's size, use of iterative reconstruction technique. DICOM images are available. The images were reviewed on a PACS workstation. CTD/vol = 5.3 mGy; Total Exam DLP = 299.11 mGy.cm. COMPARISON: CT abdomen/pelvis February 23, 2019. FINDINGS: There is respiratory artifact limiting the evaluation to some extent. There is minimal bibasilar subsegmental atelectasis. There is no evidence for significant pleural effusion. The liver has a normal size and contour. There is again identified an ovoid calcific density projecting from the posterior segment of the right lobe of the liver on axial image 3-56 measuring approximately 14 x 14 x 12 mm without significant interval change. No intrahepatic nor extrahepatic biliary ductal dilatation is seen. The gallbladder demonstrates no wall thickening nor pericholecystic fluid. No biliary stones are evident. The pancreas is without areas of abnormal attenuation. The spleen is identified and has a normal size without abnormal density. The adrenal glands are unremarkable. The kidneys are without abnormal density. No hydroureteronephrosis nor nephroureterolithiasis is evident. The urinary bladder contains urine. There is prominent loop of dilated small bowel within the left side of the abdomen with fecalization extending to a transition point in the mid abdomen. The rest of the bowel appears to be decompressed. The appendix is visualized and is without abnormal thickening or surrounding inflammatory reaction. The prostate is not enlarged. There is no significant free fluid. The aortoiliac vessels are mildly calcified without aneurysmal dilatation. The osseous structures are intact. IMPRESSION: 1. Respiratory artifact limiting evaluation to some extent. 2. Fecalized dilated loop of small bowel within the left side of the abdomen extending to a transition point in the mid abdomen without significant dilatation of the rest of the bowel. This may represent a resolving versus recurrent early small-bowel obstruction. Clinical correlation is necessary. 3. Small calcified right hepatic mass without significant change. 4. No CT evidence for appendicitis. 5. Vascular calcifications. .Ronald Witt MD, MD Date Time Electronically viewed and signed by .Ronald Witt MD, on 03/04/2019 02:17 .M/ CC: AHSAN ROSALES [id number] ANIKA BREWSTER Mar 04, 2019 05:40
[2019-03-04] MEDS ORDERED: LORAZEPAM 2 MG INJ IV PRN (06:00)
[2019-03-04] MEDS ORDERED: BISACODYL (EC) 5 MG TAB PO PRN (06:00)
[2019-03-04] MEDS ORDERED: DOCUSATE SODIUM 100 MG CAP PO PRN (06:00)
[2019-03-04] MEDS ORDERED: NACL 0.9% 3 ML SYG IV SCH (06:00)
[2019-03-04] MEDS: morphine 2 MG INJ IV PRN ×2 (07:20→14:49)
[2019-03-04] MEDS: SUCRALFATE 1 GM TAB PO SCH ×3 (07:59→17:39)
[2019-03-04] MEDS: SOD CHLORIDE 0.9% 1,000 ML IV SCH ×3 (07:59→19:26)
--- NOTE | 2019-03-04 10:20 | PN ---
Date/Time of Note Date/Time of Note DATE: 03/04/19 TIME: 10:13 Assessment/Plan VTE Prophylaxis SCD applied (from Nsg): Yes Pharmacological prophylaxis: NA/contraindicated Pharm contraindication: low risk/ambulating Lines/Catheters IV Catheter Type (from Nrsg): Saline Lock Assessment/Plan Assessment/Plan 1. Acute abdominal pain - CT scan noted with resolving vs early recurrent SBO. Dr. Rg consulted by ED given patient underwent surgical resection of diverticulum during last admission. - Doubt SBO given patient had BM yesterday and passing gas this am. No other noted abnormalities on CT scan to explain pain - IVF on board - pain control 2. Oliguric - patient states he has not urinated since yesterday but also has not had PO intake. Will hydrate with IVF and monitor for urine output 3. h/o ETOH abuse - levels neg at time of admission 4. h/o tobacco abuse - cessation counseling offered - nicotine patch 5. Disposition - continue NPO and IVF. Pending General Surgery evaluation of abdominal pain given findings of ? early SBO Result Diagram: 03/04/19 0001 03/04/19 0001 Results 24hrs Laboratory Tests Test 03/04/19 00:01 03/04/19 06:31 White Blood Count 11.4 H Red Blood Count 4.60 L Hemoglobin 14.9 Hematocrit 44.0 Mean Corpuscular Volume 95.7 Mean Corpuscular Hemoglobin 32.4 Mean Corpuscular Hemoglobin Concent 33.9 Red Cell Distribution Width 12.2 Platelet Count 218 Mean Platelet Volume 9.5 Immature Granulocytes % 0.300 Neutrophils % 81.4 H Lymphocytes % 12.7 L Monocytes % 4.8 Eosinophils % 0.5 Basophils % 0.3 Nucleated Red Blood Cells % 0.0 Immature Granulocytes # 0.040 H Neutrophils # 9.3 H Lymphocytes # 1.5 Monocytes # 0.6 Eosinophils # 0.1 Basophils # 0.0 Nucleated Red Blood Cells # 0.0 Sodium Level 139 Potassium Level 3.5 Chloride Level 104 Carbon Dioxide Level 29 Anion Gap 6 Blood Urea Nitrogen 17 Creatinine 0.67 Est Glomerular Filtrat Rate mL/min > 60 Glucose Level 129 Calcium Level 9.5 Total Bilirubin 0.5 Direct Bilirubin 0.00 Indirect Bilirubin 0.5 Aspartate Amino Transf (AST/SGOT) 26 Alanine Aminotransferase (ALT/SGPT) 44 Alkaline Phosphatase 61 Total Protein 7.3 Albumin 4.0 Globulin 3.30 H Albumin/Globulin Ratio 1.21 Lipase 26 Ethyl Alcohol Level < 10.0 H Subjective 24 Hr Interval Summary Free Text/Dictation Patient still complaining of pain around umbilical area. Patient states pain started before BM this am. Passing gas but no BM today. Denies any dark stool or BRBPR. No nausea or vomiting. Exam/Review of Systems Exam Vitals Vital Signs Date Temp Pulse Resp B/P (MAP) Pulse Ox O2 O2 Flow FiO2 Time Delivery Rate 03/04/19 98.2 82 14 136/73 100 Room Air 09:50 (94) Exam General: mild distress secondary to pain Neck: Supple Chest: Nontender Lungs: Clear to auscultation bilaterally no crackles rales or wheezing Heart: Normal S1-S2, Regular rhythm and rate. No murmur, S3, or S4 Abdomen: Soft , tenderness periumbilical area, nondistended , bowel sounds are present. No guarding no rebound tenderness Extremities: Normal to inspection, no edema no cyanosis Skin: surgical incision sites, clean and dry Results Results 24hrs Laboratory Tests Test 03/04/19 00:01 03/04/19 06:31 White Blood Count 11.4 H Red Blood Count 4.60 L Hemoglobin 14.9 Hematocrit 44.0 Mean Corpuscular Volume 95.7 Mean Corpuscular Hemoglobin 32.4 Mean Corpuscular Hemoglobin Concent 33.9 Red Cell Distribution Width 12.2 Platelet Count 218 Mean Platelet Volume 9.5 Immature Granulocytes % 0.300 Neutrophils % 81.4 H Lymphocytes % 12.7 L Monocytes % 4.8 Eosinophils % 0.5 Basophils % 0.3 Nucleated Red Blood Cells % 0.0 Immature Granulocytes # 0.040 H Neutrophils # 9.3 H Lymphocytes # 1.5 Monocytes # 0.6 Eosinophils # 0.1 Basophils # 0.0 Nucleated Red Blood Cells # 0.0 Sodium Level 139 Potassium Level 3.5 Chloride Level 104 Carbon Dioxide Level 29 Anion Gap 6 Blood Urea Nitrogen 17 Creatinine 0.67 Est Glomerular Filtrat Rate mL/min > 60 Glucose Level 129 Calcium Level 9.5 Total Bilirubin 0.5 Direct Bilirubin 0.00 Indirect Bilirubin 0.5 Aspartate Amino Transf (AST/SGOT) 26 Alanine Aminotransferase (ALT/SGPT) 44 Alkaline Phosphatase 61 Total Protein 7.3 Albumin 4.0 Globulin 3.30 H Albumin/Globulin Ratio 1.21 Lipase 26 Ethyl Alcohol Level < 10.0 H Medications Medication Current Medications Sucralfate (Carafate) 1 gm Q6 PO Last administered on 03/04/19at 07:59; Admin Dose 1 GM; Start 03/04/19 at 06:00 Sodium Chloride 1,000 ml @ 100 mls/hr Q10H IV Last administered on 03/04/19at 07:59; Admin Dose 100 MLS/HR; Start 03/04/19 at 05:40 IV Flush (NS 3 ml) 3 ml PER PROTOCOL IV ; Start 03/04/19 at 06:00 Ondansetron HCl (Zofran Inj) 4 mg Q6H PRN IV NAUSEA/VOMITING; Start 03/04/19 at 06:00 Acetaminophen (Tylenol Tab) 650 mg Q6H PRN PO .PAIN 1-3 OR TEMP; Start 03/04/19 at 06:00 Morphine Sulfate (morphine) 2 mg Q4H PRN IV .SEVERE PAIN 7-10 Last administered on 03/04/19at 07:20; Admin Dose 2 MG; Start 03/04/19 at 06:00 Docusate Sodium (Colace) 100 mg Q12H PRN PO .CONSTIPATION; Start 03/04/19 at 06:00 Bisacodyl (Dulcolax) 5 mg DAILY PRN PO .CONSTIPATION; Start 03/04/19 at 06:00 Lorazepam (Ativan) 1 mg Q2H PRN IV CONTROL WITHDRAWAL SYMPTOMS; Start 03/04/19 at 06:00 DANNY BRUCE MD Mar 04, 2019 10:20
[2019-03-04] MEDS: HYDROmorphONE 0.5 MG/0.5 ML SYG IV PRN ×2 (11:04→15:49)
[2019-03-04 13:00] VITALS: BP 131/65; PULSE 53; RESP 16; Ht 162.6 cm; Wt 59.1 kg
--- NOTE | 2019-03-04 16:59 | PN ---
Date/Time of Note Date/Time of Note DATE: 03/04/19 TIME: 16:56 Assessment/Plan Lines/Catheters IV Catheter Type (from Nrs): Saline Lock Assessment/Plan Assessment/Plan Status post diverticulectomy small bowel week ago for recurrent small bowel obstruction. Patient returned with a similar picture however no evidence of obstruction. Continues to pass gas and having bowel movements. Continue n.p.o. for day or 2, pain control, observation. I do not see reason for surgical intervention currently. Subjective 24 Hr Interval Summary Patient returned to emergency room yesterday night with abdominal pain. Patient states that the pain is similar to what he had before surgery. However patient denied nausea and vomiting. Patient continued to pass gas and having bowel movements. CT scan was performed that showed dilated loop of bowel that was in terpreted as resolving or early bowel obstruction. Vital signs have been stable, normal labs. Feeding: NPO Pain Control: mild Exam/Review of Systems Vital Signs Vitals Vital Signs Date Temp Pulse Resp B/P (MAP) Pulse Ox O2 O2 Flow FiO2 Time Delivery Rate 03/04/19 98.5 53 16 131/65 96 Room Air 13:00 (87) Exam Gastrointestinal: other (Abdomen is soft nondistended very mild tenderness in the mid abdomen, wounds are clean.) Results Result Diagram: 03/04/19 0001 03/04/19 0001 URSULA JACKSON MD Mar 04, 2019 16:59
[2019-03-04 20:27] VITALS: BP 109/96; PULSE 56; RESP 18
[2019-03-05 02:28] VITALS: BP 115/68; PULSE 58; RESP 20
[2019-03-05] MEDS: SOD CHLORIDE 0.9% 1,000 ML IV SCH ×2 (04:56→18:32)
[2019-03-05] MEDS: SUCRALFATE 1 GM TAB PO SCH ×5 (05:57→23:23)
[2019-03-05 07:18] VITALS: BP 122/62; PULSE 54; RESP 16
--- NOTE | 2019-03-05 10:26 | PN ---
Date/Time of Note Date/Time of Note DATE: 03/05/19 TIME: 09:38 Assessment/Plan Lines/Catheters IV Catheter Type (from Nrsg): Peripheral IV Navarrete in Place (from Nrsg): No Subjective 24 Hr Interval Summary Pain reported some improvement in pain. Still passing gas. We will continue the same care. Exam/Review of Systems Vital Signs Vitals Vital Signs Date Temp Pulse Resp B/P (MAP) Pulse Ox O2 O2 Flow FiO2 Time Delivery Rate 03/05/19 98.3 54 16 122/62 96 Room Air 07:18 (82) Intake and Output 03/04/19 03/04/19 03/05/19 1515:00 23:00 07:00 IntakeIntake Total 1000 ml 1000 ml BalanceBalance 1000 ml 1000 ml Results Result Diagram: 03/05/19 0540 03/05/19 0539 URSULA JACKSON MD Mar 05, 2019 10:26
[2019-03-05] MEDS: morphine 2 MG INJ IV PRN ×3 (12:09→21:05)
--- NOTE | 2019-03-05 12:27 | PN ---
Date/Time of Note Date/Time of Note DATE: 03/05/19 TIME: 12:25 Assessment/Plan VTE Prophylaxis Risk score (from Nsg)>0 risk: 5 SCD applied (from Nsg): Yes Pharmacological prophylaxis: NA/contraindicated Pharm contraindication: low risk/ambulating Lines/Catheters IV Catheter Type (from Nrsg): Peripheral IV Urinary Cath still in place: No Assessment/Plan Assessment/Plan Indonesian speaking man presents with partial SBO after abdominal surgery. 1. Partial SBO - CT scan noted with resolving vs early recurrent SBO. Dr. Rg consulted by ED given patient underwent surgical resection of diverticulum during last admission. - Clinically no SBO - Started clear liquids, advance as tolerated. - IVF on board - pain control 2. Oliguric - Will hydrate with IVF and monitor for urine output 3. h/o ETOH abuse - levels neg at time of admission 4. h/o tobacco abuse - cessation counseling offered - nicotine patch 5. Disposition - Advance diet. Result Diagram: 03/05/19 0540 03/05/19 0539 Subjective 24 Hr Interval Summary Free Text/Dictation Spoke to patient and with Indonesian telephone waiter/waitress first class. He is feeling improved. No abdominal pain, passing flatus. Exam/Review of Systems Exam Vitals Vital Signs Date Temp Pulse Resp B/P (MAP) Pulse Ox O2 O2 Flow FiO2 Time Delivery Rate 03/05/19 98.3 54 16 122/62 96 Room Air 07:18 (82) Intake and Output 03/04/19 03/04/19 03/05/19 1515:00 23:00 07:00 IntakeIntake Total 1000 ml 1000 ml BalanceBalance 1000 ml 1000 ml Exam General: Well appearing man in no distress. Neck: Supple Chest: Nontender Lungs: Clear to auscultation bilaterally no crackles rales or wheezing Heart: Normal S1-S2, Regular rhythm and rate. No murmur, S3, or S4 Abdomen: Soft , nontender, nondistended , bowel sounds are present. No guarding no rebound tenderness Extremities: Normal to inspection, no edema no cyanosis Skin: surgical incision sites, clean and dry Results Results 24hrs Laboratory Tests Test 03/05/19 05:39 03/05/19 05:40 Sodium Level 144 Potassium Level 3.8 Chloride Level 108 Carbon Dioxide Level 25 Anion Gap 11 Blood Urea Nitrogen 12 Creatinine 0.69 Est Glomerular Filtrat Rate mL/min > 60 Glucose Level 81 # Calcium Level 8.2 L Total Bilirubin 0.8 Direct Bilirubin 0.00 Indirect Bilirubin 0.8 Aspartate Amino Transf (AST/SGOT) 21 Alanine Aminotransferase (ALT/SGPT) 29 Alkaline Phosphatase 52 Total Protein 6.1 # Albumin 3.1 L Globulin 3.00 Albumin/Globulin Ratio 1.03 White Blood Count 7.6 # Red Blood Count 4.36 L Hemoglobin 14.0 Hematocrit 42.0 Mean Corpuscular Volume 96.3 Mean Corpuscular Hemoglobin 32.1 Mean Corpuscular Hemoglobin Concent 33.3 Red Cell Distribution Width 12.3 Platelet Count 228 Mean Platelet Volume 9.7 Immature Granulocytes % 0.100 Neutrophils % 60.6 Lymphocytes % 26.2 Monocytes % 11.4 H Eosinophils % 1.2 Basophils % 0.5 Nucleated Red Blood Cells % 0.0 Immature Granulocytes # 0.010 Neutrophils # 4.6 Lymphocytes # 2.0 Monocytes # 0.9 Eosinophils # 0.1 Basophils # 0.0 Nucleated Red Blood Cells # 0.0 Medications Medication Current Medications Sucralfate (Carafate) 1 gm Q6 PO Last administered on 03/04/19at 17:39; Admin Dose 1 GM; Start 03/04/19 at 06:00 Sodium Chloride 1,000 ml @ 100 mls/hr Q10H IV Last administered on 03/05/19at 04:56; Admin Dose 100 MLS/HR; Start 03/04/19 at 05:40 IV Flush (NS 3 ml) 3 ml PER PROTOCOL IV ; Start 03/04/19 at 06:00 Ondansetron HCl (Zofran Inj) 4 mg Q6H PRN IV NAUSEA/VOMITING; Start 03/04/19 at 06:00 Acetaminophen (Tylenol Tab) 650 mg Q6H PRN PO .PAIN 1-3 OR TEMP; Start 03/04/19 at 06:00 Morphine Sulfate (morphine) 2 mg Q4H PRN IV PAIN LEVEL 4-6 Last administered on 03/05/19at 12:09; Admin Dose 2 MG; Start 03/04/19 at 06:00 Docusate Sodium (Colace) 100 mg Q12H PRN PO .CONSTIPATION; Start 03/04/19 at 06:00 Bisacodyl (Dulcolax) 5 mg DAILY PRN PO .CONSTIPATION; Start 03/04/19 at 06:00 Lorazepam (Ativan) 1 mg Q2H PRN IV CONTROL WITHDRAWAL SYMPTOMS; Start 03/04/19 at 06:00 Hydromorphone HCl (Dilaudid) 0.5 mg Q4H PRN IV SEVERE PAIN LEVEL 7-10 Last administered on 03/04/19at 15:49; Admin Dose 0.5 MG; Start 03/04/19 at 10:30 BRAULIO DESAI MD Mar 05, 2019 12:27
[2019-03-05 14:00] VITALS: BP 130/70; PULSE 51; RESP 18
[2019-03-05 20:15] VITALS: BP 142/69; PULSE 55; RESP 20
[2019-03-06 02:30] VITALS: BP 101/56; PULSE 52; RESP 18
[2019-03-06] MEDS: morphine 2 MG INJ IV PRN ×3 (02:53→20:59)
[2019-03-06] MEDS: SUCRALFATE 1 GM TAB PO SCH ×3 (05:31→17:41)
[2019-03-06] MEDS: SOD CHLORIDE 0.9% 1,000 ML IV SCH (05:32)
[2019-03-06 07:18] VITALS: BP 136/68; PULSE 53; RESP 18
--- NOTE | 2019-03-06 12:35 | PN ---
Date/Time of Note Date/Time of Note DATE: 03/06/19 TIME: 12:33 Assessment/Plan VTE Prophylaxis Risk score (from Ns)>0 risk: 2 SCD applied (from Ns): Yes Pharmacological prophylaxis: NA/contraindicated Pharm contraindication: low risk/ambulating Lines/Catheters IV [facility] (from [facility] Saline Lock Urinary Cath still in place: No Assessment/Plan Assessment/Plan Greek speaking man presents with partial SBO after abdominal surgery. 1. Partial SBO - CT scan noted with resolving vs early recurrent SBO. Dr. Rg consulted by ED given patient underwent surgical resection of diverticulum during last admission. - Clinically no SBO - Tolerating full liquids, will advance to regular. 2. Oliguric - Cr normal. Urine output normalized. 3. h/o ETOH abuse - levels neg at time of admission 4. h/o tobacco abuse - cessation counseling offered - nicotine patch 5. Disposition - Discharge when tolerating regular diet. Result Diagram: 03/05/1940 03/05/1939 Subjective 24 Hr Interval Summary Free Text/Dictation No acute overnight events. Patient tolerating full liquids for lunch right now. Exam/Review of Systems Exam Vitals Vital Signs Date Temp Pulse Resp B/P (MAP) Pulse Ox O2 O2 Flow FiO2 Time Delivery Rate 03/06/19 97.4 53 18 136/68 97 Room Air 07:18 (90) Intake and Output 03/05/19 03/05/19 03/06/19 1515:00 23:00 07:00 IntakeIntake Total 300 ml 1350 ml 1500 ml OutputOutput Total 450 ml 700 ml 600 ml BalanceBalance -150 ml 650 ml 900 ml Exam General: Well appearing man in no distress. Neck: Supple Chest: Nontender Lungs: Clear to auscultation bilaterally no crackles rales or wheezing Heart: Normal S1-S2, Regular rhythm and rate. No murmur, S3, or S4 Abdomen: Soft , nontender, nondistended , bowel sounds are present. No guarding no rebound tenderness Extremities: Normal to inspection, no edema no cyanosis Skin: surgical incision sites, clean and dry Medications Medication Current Medications Sucralfate (Carafate) 1 gm Q6 PO Last administered on 03/06/19at 12:29; Admin Dose 1 GM; Start 03/04/19 at 06:00 Sodium Chloride 1,000 ml @ 100 mls/hr Q10H IV Last administered on 03/06/19at 05:32; Admin Dose 100 MLS/HR; Start 03/04/19 at 05:40 IV Flush (NS 3 ml) 3 ml PER PROTOCOL IV ; Start 03/04/19 at 06:00 Ondansetron HCl (Zofran Inj) 4 mg Q6H PRN IV NAUSEA/VOMITING; Start 03/04/19 at 06:00 Acetaminophen (Tylenol Tab) 650 mg Q6H PRN PO .PAIN 1-3 OR TEMP; Start 03/04/19 at 06:00 Morphine Sulfate (morphine) 2 mg Q4H PRN IV PAIN LEVEL 4-6 Last administered on 03/06/19at 08:43; Admin Dose 2 MG; Start 03/04/19 at 06:00 Docusate Sodium (Colace) 100 mg Q12H PRN PO .CONSTIPATION; Start 03/04/19 at 06:00 Bisacodyl (Dulcolax) 5 mg DAILY PRN PO .CONSTIPATION; Start 03/04/19 at 06:00 Lorazepam (Ativan) 1 mg Q2H PRN IV CONTROL WITHDRAWAL SYMPTOMS; Start 03/04/19 at 06:00 Hydromorphone HCl (Dilaudid) 0.5 mg Q4H PRN IV SEVERE PAIN LEVEL 7-10 Last administered on 03/04/19at 15:49; Admin Dose 0.5 MG; Start 03/04/19 at 10:30 BRAULIO DESAI MD Mar 06, 2019 12:35
--- NOTE | 2019-03-06 13:21 | PN ---
Date/Time of Note Date/Time of Note DATE: 03/06/19 TIME: 13:20 Assessment/Plan Lines/Catheters IV Catheter Type (from Nrs): Saline Lock [place]rete in Place (from Nrs): No Assessment/Plan Assessment/Plan Patient does not have signs of bowel obstruction currently. I agree with discharge home. Subjective 24 Hr Interval Summary Patient is stable, passing gas, no evidence of small bowel obstruction. Agree with discharge. Exam/Review of Systems Vital Signs Vitals Vital Signs Date Temp Pulse Resp B/P (MAP) Pulse Ox O2 O2 Flow FiO2 Time Delivery Rate 03/06/19 97.4 53 18 136/68 97 Room Air 07:18 (90) Intake and Output 03/05/19 03/05/19 03/06/19 1515:00 23:00 07:00 IntakeIntake Total 300 ml 1350 ml 1500 ml OutputOutput Total 450 ml 700 ml 600 ml BalanceBalance -150 ml 650 ml 900 ml Exam Gastrointestinal: soft, nl liver, spleen, non-tender Results Result Diagram: 03/05/19 0540 03/05/19 0539 URSULA JACKSON MD Mar 06, 2019 13:21
[2019-03-06 14:03] VITALS: BP 126/72; PULSE 55; RESP 16
[2019-03-06 20:35] VITALS: BP 133/71; PULSE 53; RESP 18
[2019-03-06] MEDS: HYDROmorphONE 0.5 MG/0.5 ML SYG IV PRN (23:02)
[2019-03-07] MEDS: SUCRALFATE 1 GM TAB PO SCH ×5 (00:26→23:17)
[2019-03-07 02:21] VITALS: BP 140/68; PULSE 50; RESP 16
[2019-03-07] MEDS: morphine 2 MG INJ IV PRN ×2 (05:04→10:31)
--- NOTE | 2019-03-07 07:27 | RADRPT ---
Vent Rate: 50 bpm RR Interval: 1200 msec TN Interval: 146 msec QRS Duration: 93 msec QT Interval: 435 msec QTC Interval: 397 msec P-R-T [place]: 53 - 72 - 68 degrees Sinus rhythm...normal P axis, V-rate 50- 99 Electronically Signed By: Jonn Fagan
[2019-03-07 08:00] VITALS: BP 147/85; PULSE 96; RESP 18
--- NOTE | 2019-03-07 12:30 | PN ---
Date/Time of Note Date/Time of Note DATE: 03/07/19 TIME: 12:27 Assessment/Plan VTE Prophylaxis Risk score (from Ns)>0 risk: 8 SCD applied (from Ns): Yes Pharmacological prophylaxis: NA/contraindicated Pharm contraindication: low risk/ambulating Lines/Catheters [facility] Saline Lock Urinary Cath still in place: No Assessment/Plan Assessment/Plan English speaking man presents with partial SBO after abdominal surgery. 1. Partial SBO - CT scan noted with resolving vs early recurrent SBO. Dr. Rg consulted by ED given patient underwent surgical resection of diverticulum during last admission. - Clinically no SBO - Regular diet causing mild abdominal pain. - Opioids may be delaying recovery of bowel function. Will discontinue. - Bisacodyl, miralax. 2. Oliguric - Cr normal. Urine output normalized. 3. h/o ETOH abuse - levels neg at time of admission 4. h/o tobacco abuse - cessation counseling offered - nicotine patch 5. Disposition - Now tolerating regular diet. Discharge after bowel movement and pain controlled off morphine. Result Diagram: 03/05/19 0540 03/05/19 0539 Subjective 24 Hr Interval Summary Free Text/Dictation No acute overnight events. Intermittent episodes of stabbing periumbilical abdominal pain lasting a few minutes which occurs after eating. But otherwise eating regular diet, most of the tray. No nausea, no vomiting. Passing gas, but no bowel movement yet. Exam/Review of Systems Exam Vitals Vital Signs Date Temp Pulse Resp B/P (MAP) Pulse Ox O2 O2 Flow FiO2 Time Delivery Rate 03/07/19 97.8 50 16 140/68 96 02:21 (92) 03/06/19 Room Air 14:03 Intake and Output 03/06/19 03/06/19 03/07/19 1515:00 23:00 07:00 IntakeIntake Total 1360 ml 360 ml BalanceBalance 1360 ml 360 ml Exam General: Well appearing man in no distress. Neck: Supple Chest: Nontender Lungs: Clear to auscultation bilaterally no crackles rales or wheezing Heart: Normal S1-S2, Regular rhythm and rate. No murmur, S3, or S4 Abdomen: Soft , nontender, nondistended , bowel sounds are present. No guarding no rebound tenderness Extremities: Normal to inspection, no edema no cyanosis Skin: surgical incision sites, clean and dry Results Results 24hrs Laboratory Tests Test 03/07/19 05:59 Thyroid Stimulating Hormone (TSH) 1.950 Medications Medication Current Medications Sucralfate (Carafate) 1 gm Q6 PO Last administered on 03/07/19 12:24; Admin Dose 1 GM; Start 03/04/19 at 06:00 IV Flush (NS 3 ml) 3 ml PER PROTOCOL IV ; Start 03/04/19 at 06:00 Ondansetron HCl (Zofran Inj) 4 mg Q6H PRN IV NAUSEA/VOMITING; Start 03/04/19 at 06:00 Acetaminophen (Tylenol Tab) 650 mg Q6H PRN PO .PAIN 1-3 OR TEMP; Start 03/04/19 at 06:00 Morphine Sulfate (morphine) 2 mg Q4H PRN IV PAIN LEVEL 4-6 Last administered on 03/07/19at 10:31; Admin Dose 2 MG; Start 03/04/19 at 06:00 Docusate Sodium (Colace) 100 mg Q12H PRN PO .CONSTIPATION; Start 03/04/19 at 06:00 Bisacodyl (Dulcolax) 5 mg DAILY PRN PO .CONSTIPATION; Start 03/04/19 at 06:00 Lorazepam (Ativan) 1 mg Q2H PRN IV CONTROL WITHDRAWAL SYMPTOMS; Start 03/04/19 at 06:00 Hydromorphone HCl (Dilaudid) 0.5 mg Q4H PRN IV SEVERE PAIN LEVEL 7-10 Last administered on 03/06/19at 23:02; Admin Dose 0.5 MG; Start 03/04/19 at 10:30 BRAULIO DESAI MD Mar 07, 2019 12:30
[2019-03-07 14:00] VITALS: BP 128/63; PULSE 76; RESP 18
[2019-03-07] MEDS: POLYETHYLENE GLYCOL 17 GM PACKET PO SCH (15:06)
[2019-03-07 20:00] VITALS: BP 117/63; PULSE 51; RESP 18
[2019-03-07] MEDS: ACETAMINOPHEN 325 MG TAB PO PRN (20:23)
[2019-03-07] MEDS ORDERED: HYDROCODONE/APAP (5/325) TAB PO ONE (23:30)
[2019-03-08 02:00] VITALS: BP 140/65; PULSE 51; RESP 18
[2019-03-08] MEDS: SUCRALFATE 1 GM TAB PO SCH ×3 (06:23→17:34)
[2019-03-08 08:16] VITALS: BP 132/68; PULSE 53; RESP 16
[2019-03-08] MEDS: POLYETHYLENE GLYCOL 17 GM PACKET PO SCH (08:44)
[2019-03-08 16:32] VITALS: BP 134/74; PULSE 56; RESP 18
[2019-03-08] MEDS: ACETAMINOPHEN 325 MG TAB PO PRN (18:26)
--- NOTE | 2019-03-08 19:11 | PN ---
Date/Time of Note Date/Time of Note DATE: 03/08/19 TIME: 19:09 Assessment/Plan VTE Prophylaxis Risk score (from Nsg)>0 risk: 3 SCD applied (from Nsg): Yes SCD contraindicated: low risk/ambulating Pharmacological prophylaxis: LMWH Lines/Catheters IV Catheter Type (from Nrsg): Saline Lock Urinary Cath still in place: No Assessment/Plan Hospital Course Assessment and plan 1. Partial small bowel obstruction, stable resolving. Discharge home 2. Alcoholism status post counseling 3. Tobacco abuse status post counseling. 4. Depression adjustment disorder? Subjective: Tolerating diet. I updated patient and patient's son regarding the care plan and options. He still has a little pain while eating. Recommend outpatient follow-up with GI. Objective: Vital signs stable Physical exam No pallor adenopathy icterus Regular Clear Bowel sounds positive nontender nondistended no RRG No edema Result Diagram: 03/05/19 0540 03/05/19 0539 Exam/Review of Systems Exam Vitals Vital Signs Date Temp Pulse Resp B/P (MAP) Pulse Ox O2 O2 Flow FiO2 Time Delivery Rate 03/08/19 97.1 56 18 134/74 98 16:32 (94) 03/06/19 Room Air 14:03 Intake and Output 03/07/19 03/07/19 03/08/19 1515:00 23:00 07:00 IntakeIntake Total 940 ml 350 ml BalanceBalance 940 ml 350 ml Medications Medication Current Medications Sucralfate (Carafate) 1 gm Q6 PO Last administered on 03/08/19at 17:34; Admin Dose 1 GM; Start 03/04/19 at 06:00 IV Flush (NS 3 ml) 3 ml PER PROTOCOL IV ; Start 03/04/19 at 06:00 Ondansetron HCl (Zofran Inj) 4 mg Q6H PRN IV NAUSEA/VOMITING; Start 03/04/19 at 06:00 Acetaminophen (Tylenol Tab) 650 mg Q6H PRN PO .PAIN 1-3 OR TEMP Last administered on 03/08/19at 18:26; Admin Dose 650 MG; Start 03/04/19 at 06:00 Docusate Sodium (Colace) 100 mg Q12H PRN PO .CONSTIPATION; Start 03/04/19 at 06:00 Bisacodyl (Dulcolax) 5 mg DAILY PRN PO .CONSTIPATION; Start 03/04/19 at 06:00 Lorazepam (Ativan) 1 mg Q2H PRN IV CONTROL WITHDRAWAL SYMPTOMS; Start 03/04/19 at 06:00 Polyethylene Glycol (Miralax) 17 gm DAILY PO Last administered on 03/08/19at 08:44; Admin Dose 17 GM; Start 03/07/19 at 12:30 KATHARINE MORAN MD Mar 08, 2019 19:10
[2019-03-08] MEDS ORDERED: NICOTINE (14 MG/24 HR) PATCH TRANSDERM PRN (19:30)
[2019-03-08] MEDS ORDERED: ACETAMINOPHEN 325 MG TAB PO PRN (19:30)
[2019-03-08] MEDS ORDERED: ONDANSETRON 4 MG INJ IV PRN (19:30)
[2019-03-08 20:00] VITALS: BP 123/69; PULSE 52; RESP 18
[2019-03-08] MEDS: FAMOTIDINE 20 MG TAB PO SCH (20:18)
[2019-03-08] MEDS: LIDOCAINE/MYLANTA 40 ML BTL PO SCH (21:45)
[2019-03-09] MEDS: SUCRALFATE 1 GM TAB PO SCH ×3 (00:18→12:07)
[2019-03-09] MEDS: ACETAMINOPHEN 325 MG TAB PO PRN (00:30)
[2019-03-09 02:00] VITALS: BP 128/63; PULSE 53; RESP 19
[2019-03-09] MEDS: LIDOCAINE/MYLANTA 40 ML BTL PO SCH (05:36)
[2019-03-09 08:52] VITALS: BP 112/61; PULSE 53; RESP 18
[2019-03-09] MEDS: POLYETHYLENE GLYCOL 17 GM PACKET PO SCH (09:17)
[2019-03-09] MEDS: FAMOTIDINE 20 MG TAB PO SCH (09:17)
--- NOTE | 2019-03-09 11:39 | PDOCDIS ---
Discharge Instructions CONDITION [id number] Patient Condition: [id number] Stable HOME CARE INSTRUCTIONS: [id number] Diet Instructions: [id number] Low Fat /Cholesterol ACTIVITY: [id number] Activity Restrictions: [id number] No Restrictions Slowly Increase Activity Avoid heavy lifting FOLLOW UP/APPOINTMENTS Follow-up Plan avoid alcohol & smoking. appt primary 1wk KATHARINE MORAN MD Mar 09, 2019 11:39
[2019-03-09] MEDS ORDERED: ACET325T33 PO (11:41)
[2019-03-09] MEDS ORDERED: POLY17PO6 PO (11:41)
[2019-03-09] MEDS ORDERED: THIA100T56 PO (11:41)
[2019-03-09] MEDS ORDERED: Nicotine (14 Mg/24 Hr) TRANSDERM (11:41)
[2019-03-09] MEDS ORDERED: FAMO20TA18 PO (11:41)
--- NOTE | 2019-03-09 16:21 | DS ---
Date/Time of Note Date/Time of Note DATE: 03/09/19 TIME: 16:20 Discharge Summary Admission/Discharge Info Admit Date/Time Mar 04, 2019 at 03:08 Discharge Date/Time Mar 09, 2019 at 14:00 Patient Condition: Stable Procedures CAT scan abdomen pelvis IMPRESSION: 1. Respiratory artifact limiting evaluation to some extent. 2. Fecalized dilated loop of small bowel within the left side of the abdomen extending to a transition point in the mid abdomen without significant dilatation of the rest of the bowel. This may represent a resolving versus recurrent early small-bowel obstruction. Clinical correlation is necessary. 3. Small calcified right hepatic mass without significant change. 4. No CT evidence for appendicitis. 5. Vascular calcifications. Her graph chest x-ray No acute process Hospital Course Hospitalist coverage/hospital course Needed for partial small bowel obstruction. Resolved with conservative measures. Stable and fit for discharge home. I asked him to cut back and discontinue alcohol and tobacco use. He is given laxatives to help with his constipation. Patient states he has pain when he or after he eats. Possibly has underlying gastritis due to alcoholism tobacco abuse. I started him on ant acids. He can visit GI as an outpatient if needed. 1. Partial small bowel obstruction, stable resolved. Discharge home 2. Alcoholism status post counseling 3. Tobacco abuse status post counseling. 4. Depression adjustment disorder? Home Meds Active Scripts Thiamine* (Vitamin B-1*) 100 Mg Tablet, 100 MG PO DAILY for 30 Days, #30 TAB 1 Refill Prov:KATHARINE MORAN MD 03/09/19 Polyethylene Glycol* (Miralax*) 17 Gm Powd.pack, 17 GM PO DAILY for 5 Days, #5 otc Prov:KATHARINE MORAN MD 03/09/19 Famotidine* (Famotidine*) 20 Mg Tablet, 20 MG PO BID for 14 Days, #30 TAB otc Prov:KATHARINE MORAN MD 03/09/19 Acetaminophen* (Tylenol*) 325 Mg Tablet, 650 MG PO Q4H PRN for MILD PAIN(1-3)OR ELEVATED TEMP for 7 Days, TAB Prov:KATHARINE MORAN MD 03/09/19 [Nicotine (14 Mg/24 Hr)] 1 PATCH PATCH No Conflict Check, 1 PATCH TRANSDERM DAILY PRN for CONTROL WITHDRAWAL SYMPTOMS for 7 Days Prov:KATHARINE MORAN MD 03/09/19 Sucralfate* (Carafate*) 1 Gm Tab, 1 GM PO Q6 for 14 Days, #56 TAB Prov:DANNY BRUCE MD 02/25/19 Discontinued Scripts Hydrocodone Bit-Acetaminophen (Hydrocodone Bit-APAP) 5-325MG Tablet, 1 TAB PO Q4H PRN for MODERATE PAIN LEVEL 4-6 for 5 Days, #20 TAB Prov:DANNY BRUCE MD 02/25/19 Pantoprazole* (Pantoprazole*) 40 Mg Tablet.dr, 40 MG PO BID for 30 Days, #60 TAB Prov:DANNY BRUCE MD 02/25/19 Follow-up Plan avoid alcohol & smoking. appt primary 1wk Primary Care Provider Not On Staff Doctor Time spent on discharge: > 30 minutes KATHARINE MORAN MD Mar 09, 2019 16:21
== END 2019-03-09 14:00 | disposition home or self-care (01) | DRG 390 ==
LOC: E/R 21:37 → PP2 03-04 03:08
PROVIDERS: ADMIT Family Medicine; ATTEND Internal Medicine
DX: K56.609 Unspecified intestinal obstruction, unspecified as to partial versus complete obstruction (principal); R34 Anuria and oliguria; Z72.0 Tobacco use; F32.9 Major depressive disorder, single episode, unspecified; Z72.89 Other problems related to lifestyle
CPT/HCPCS: 71045; 74176; 80053; 80307; 83690; 84443; 85025; 93005; J1170; J2270; J2405; J7030; J7040